=== PATIENT | male | born 1970 | race Caucasian/White ===

== ENCOUNTER → 2020-01-21 11:00 | Outpatient (BNVA) | payer SELFPAY | PROVIDERS: Family Provider Family Medicine; PCP Family Medicine; Visit Provider Internal Medicine | DX: E11.8 Type 2 diabetes mellitus with unspecified complications (principal); E78.5 Hyperlipidemia, unspecified | CPT/HCPCS: 83036 ==

== ENCOUNTER 2020-01-27 05:03 | Emergency (ER) | payer OTHER, SELFPAY ==
[2020-01-27 05:10] VITALS: PULSE 97; RESP 16; TEMP 36.9; O2SAT 97; BMI 31.4
--- NOTE | 2020-01-27 05:31 | XR_ITS ---
WS: [id number] XR chest 1V portable [id number] REASON FOR EXAM: WEAKNESS FINDINGS: The right hemidiaphragm is elevated. The heart and mediastinal interfaces normal. The lung garcia are adequately aerated. No pneumonia, pleural effusion, pulmonary edema, or mass effe ct. The hilum and apices normal. XR/XR chest 1V portable [id number] IMPRESSION: Eventration of the right hemidiaphragm.
--- NOTE | 2020-01-27 05:32 | ECG_ITS ---
Measurements Intervals [place] Rate: 82 P: 24 TX: 154 QRS: 13 QRSD: 93 T: 20 QT: 377 QTc: 443 SINUS RHYTHM No previous ECG available for comparison Electronically Signed On 01-27-2020 19:37:17 CDT by Rashaad Wylie M.D. [id number]
--- NOTE | 2020-01-27 05:33 | ED_ITS ---
Documented by User: Antonia Winkler 01/27/20 05:36 HPI - Headache General: Chief Complaint: Headache Stated Complaint: headache/feet pain Time Seen by Provider: 01/27/20 05:14 History of Present Illness: HPI Narrative: Mr. Alvarado is a 49-year-old male who comes in complaining of headache, intermittent blurry vision, decreased urinary and stool output. States the symptoms have been going on for the past 4 days. He states he is not sleeping well. He denies any chest pain or shortness of breath. He does state that he feels in general weak all over. Denies any back pain or abdominal pain. He states that he is caring for his mother who has Parkinson's and this is been a stressor for him. He feels like his symptoms could be related to stress. Associated symptoms: Reports malaise and nausea; Deny chest pain, confusion, diaphoresis, fever(s), pre-syncope, rash, syncope or vomiting Review of Systems Const: Reports: body aches, fatigue, malaise and change in sleep pattern; Denies: fever(s), chills or diaphoresis Eyes: Denies: change in vision, blurry vision, blind spots or photophobia ENMT: Denies: throat pain, odynophagia, hoarseness, swelling of lips/tongue, ear or mastoid pain, ear discharge, change in hearing or nasal discharge Card: Denies: chest pain, palpitations, irregular heart rhythm, edema, syncope, pre-syncope, dyspnea on exertion or orthopnea Resp: Denies: dyspnea, productive cough, non-productive cough, wheezing, hemoptysis or chest congestion GI: Reports: nausea and constipation; Denies: abdominal pain, vomiting, hematemesis, coffee ground emesis, heartburn, diarrhea, GI cramping, hematochezia or melena : Denies: flank pain, dysuria, urinary frequency, urinary urgency or hematuria Musc: Denies: neck pain, back pain, extremity pain, extremity swelling, joint pain, joint swelling, joint redness, joint warmth or joint stiffness Skin/Breast: Denies: rash, pruritus, erythema, skin tenderness or jaundice Neuro: Denies: headache(s), numbness in extremities, weakness in extremities, sensory changes, lack of coordination, difficulty walking, dizziness, vertigo, confusion or Slurred speech present Ermias/Lymph: Denies: easy bruising, easy bleeding, petechiae, purpura or enlarged lymph nodes All/Imm: Denies: urticaria, throat swelling, tongue swelling, facial swelling or acute wheezing PFSH ED PFSH: Medical History Diabetes mellitus Essential (primary) hypertension Family History Other Cancer Diabetes Heart disease Social History Smoking and tobacco status: never smoked Alcohol intake: never History of recent travel: No Physical Exam Const: COMMON NORMALS: no acute distress, patient oriented x3, no limitations, healthy appearing and well nourished GENERAL APPEARANCE: cooperative, well kempt and well developed HENMT: COMMON NORMALS: normocephalic, atraumatic, hearing grossly normal bilaterally, external ears normal, EAC's normal, Normal external nose present and moist oral mucous membranes HEAD & SCALP: normocephalic and atraumatic NOSE: Normal external nose present and Normal nares present EXTERNAL EAR: Yes external ears normal EXTERNAL AUDITORY CANAL: EAC's normal MOUTH: Normal oral and palatal mucosa present, lip normal and tongue normal Eye: COMMON NORMALS: Equal, round and reactive pupils present, EOMs intact bilaterally, conjunctivae normal and no scleral icterus GENERAL EYE: appearance normal, both eyes and all related structures ALIGNMENT: Yes alignment normal PERIORBITAL: periorbital findings normal EYELID: eyelids normal CONJUNCTIVA: Yes conjunctivae normal SCLERA: sclerae normal PUPIL: Yes Equal, round and reactive pupils present Neck/C-Spine: COMMON NORMALS: full ROM, no lymphadenopathy, supple, no meningeal signs and no JVD GENERAL: Yes normal visual inspection and Yes trachea midline Chest: COMMONS NORMALS: normal inspection of the chest and normal palpation of entire chest wall Resp: COMMON NORMALS: normal respiratory effort, No retractions, No use of accessory muscles and clear to auscultation bilaterally EFFORT & INSPECTION: Yes able to speak in complete sentences and Yes symmetric chest movement AUSCULTATION: clear to auscultation bilaterally, no crackles, no rales, no rhonchi and no wheezes Cardio: COMMON NORMALS: no JVD, regular rate, regular rhythm, S1 normal heart sound present, S2 normal heart sound present, No gallops present (Cardio), No clicks present (Cardio), No murmurs present (Cardio) and No rub (Cardio) RATE: regular rate RHYTHM: regular rhythm HEART SOUNDS: S1 normal heart sound present and S2 normal heart sound present GI: COMMON NORMALS: Soft to palpation and No hepatosplenomegaly present PALPATION: Yes Soft to palpation, No Tenderness to palpation present (GI), No Guarding due to palpation present (GI), No Rigid due to palpation, Yes No hepatosplenomegaly present, No Hernia present, No Palpable mass present and No Pulsatile mass present : COMMON NORMALS: Yes no CVA tenderness BLADDER/KIDNEY EXAM: Yes no CVA tenderness Back/Pelvis: COMMON NORMALS: no CVA tenderness, thoracic and lumbar spine normal to inspection, no thoracic nor lumbar tenderness and thoraco-lumbar ROM normal Extremity: COMMON NORMALS: normal to inspection, full ROM, capillary refill normal, no joint enlargement, no clubbing, cyanosis or edema and no calf tenderness Neuro: COMMON NORMALS: patient oriented x3, CN's II-XII intact bilaterally, moves all extremities, no focal motor deficits and no sensory deficits noted MENINGEAL SIGNS: Yes no meningeal signs SPEECH: speech normal Psych: COMMON NORMALS: mental status grossly normal, Normal thought process present, cooperative, normal affect, speech normal and activity/motor behavior normal APPEARANCE: Yes well kempt SPEECH: Yes normal speech THOUGHT PROCESS: Normal thought process present Skin: COMMON NORMALS: no rashes or lesions noted, turgor normal, no jaundice, no petechiae and no mottling GENERAL SKIN EXAM: no rashes or lesions noted and turgor normal Course Vital Signs: Vital signs: Vital Signs Temperature 98.5 F 01/27/20 05:10 Pulse Rate 83 01/27/20 07:17 Respiratory Rate 16 01/27/20 07:17 Blood Pressure 125/75 01/27/20 07:17 Pulse Oximetry 95 01/27/20 07:17 MDM - Headache Lab Data: Labs: Lab Results 01/27/20 01/27/20 01/27/20 Range/Units 05:36 06:06 06:06 WBC (4.0-10.0) 10^3/ uL RBC (4.1-5.3) 10^6/u L Hgb (11.7-16.6) g/dL Hct (42.0-52.0) % MCV (80-94) fL MCH (28.0-34.0) pg MCHC (30.0-36.0) g/dL RDW (12.1-15.1) % Plt Count (130-400) 10^3/c mm MPV (7.4-10.4) fL Neut % (Auto) % Lymph % (Auto) % Williamson % (Auto) % Eos % (Auto) % Baso % (Auto) % Neut # (Auto) (1.8-7.7) 10^3/u L Lymph # (Auto) (0.8-4.8) 10^3/u L Williamson # (Auto) (0.2-0.9) 10^3/u L Eos # (Auto) (0.0-0.8) 10^3/u L Baso # (Auto) (0.0-0.1) 10^3/u L Nucleated RBC % (a uto) % Nucleated RBCs # /100WBC Sodium (136-145) mmol/L Potassium (3.5-5.1) mmol/L Chloride (98-107) mmol/L Carbon Dioxide (22-29) mmol/L Anion Gap (5-19) BUN (6-20) mg/dL Creatinine (0.7-1.2) mg/dL GFR Calculation (90-130) mL/min Glucose (65-115) mg/dL POC Glucose 280 (70-110) mg/dL Calculated Osmolal ity (285-295) mOsm/k g Calcium (8.5-10.5) mg/dL Magnesium (1.7-2.3) mg/dL Total Bilirubin (0.15-1.2) mg/dL AST (0-40) U/L ALT (0-41) U/L Alkaline Phosphata se (40-130) IU/L Creatine Kinase (39-308) U/L Troponin T Baselin e (0-15) ng/mL Total Protein (6.6-8.7) g/dL Albumin (3.5-5.2) g/dL Globulin (1.3-4.6) g/dL Lipase (13-60) U/L TSH (0.27-4.20) uIU/ mL Urine Color Yellow (Yellow) Urine Appearance Clear (CLEAR) Urine pH 5 (5-7) Ur Specific Gravit y 1.025 (1.005-1.030) Urine Protein Neg (Negative) Urine Glucose (UA) 4+ H (Normal) Urine Ketones Negative (Negative) Urine Blood Neg (Negative) Urine Nitrate Negative (Negative) Urine Bilirubin Neg (NEGATIVE) Urine Urobilinogen Norm (Negative) mg/dL Ur Leukocyte Kianna ase Negative (Negative) Urine RBC None (0-2) /hpf Urine WBC None (0-5) /hpf Ur Squamous Epith Cells None (0-5) Urine Bacteria None (NONE) Urine Opiates Scre en Negative (Negative) ng/mL Ur Barbiturates Sc reen Negative (Negative) ng/mL Ur Phencyclidine S crn Negative (Negative) ng/mL Ur Amphetamines Sc reen Negative (Negative) ng/mL U Benzodiazepines Scrn Negative (Negative) ng/mL Urine Cocaine Scre en Negative (Negative) ng/mL U Marijuana (THC) Screen Negative (Negative) ng/mL 01/27/20 01/27/20 01/27/20 Range/Units 06:08 06:08 06:08 WBC 6.2 (4.0-10.0) 10^3/ uL RBC 4.59 (4.1-5.3) 10^6/u L Hgb 13.5 (11.7-16.6) g/dL Hct 39.7 L (42.0-52.0) % MCV 86.5 (80-94) fL MCH 29.4 (28.0-34.0) pg MCHC 34.0 (30.0-36.0) g/dL RDW 11.8 L (12.1-15.1) % Plt Count 248 (130-400) 10^3/c mm MPV 9.8 (7.4-10.4) fL Neut % (Auto) 47.6 % Lymph % (Auto) 42.5 % Williamson % (Auto) 7.3 % Eos % (Auto) 1.9 % Baso % (Auto) 0.2 % Neut # (Auto) 2.9 (1.8-7.7) 10^3/u L Lymph # (Auto) 2.6 (0.8-4.8) 10^3/u L Williamson # (Auto) 0.5 (0.2-0.9) 10^3/u L Eos # (Auto) 0.1 (0.0-0.8) 10^3/u L Baso # (Auto) 0.0 (0.0-0.1) 10^3/u L Nucleated RBC % (a uto) 0 % Nucleated RBCs # 0.0 /100WBC Sodium 135 L (136-145) mmol/L Potassium 3.8 (3.5-5.1) mmol/L Chloride 98 (98-107) mmol/L Carbon Dioxide 25 (22-29) mmol/L Anion Gap 15.8 (5-19) BUN 16 (6-20) mg/dL Creatinine 0.8 (0.7-1.2) mg/dL GFR Calculation 102.7 (90-130) mL/min Glucose 260 H (65-115) mg/dL POC Glucose (70-110) mg/dL Calculated Osmolal ity 285 (285-295) mOsm/k g Calcium 9.6 (8.5-10.5) mg/dL Magnesium 2.2 (1.7-2.3) mg/dL Total Bilirubin 0.3 (0.15-1.2) mg/dL AST 16 (0-40) U/L ALT 23 (0-41) U/L Alkaline Phosphata se 47 (40-130) IU/L Creatine Kinase 108 (39-308) U/L Troponin T Baselin e 7 (0-15) ng/mL Total Protein 6.5 L (6.6-8.7) g/dL Albumin 4.3 (3.5-5.2) g/dL Globulin 2.2 (1.3-4.6) g/dL Lipase 28 (13-60) U/L TSH 0.95 (0.27-4.20) uIU/ mL Urine Color (Yellow) Urine Appearance (CLEAR) Urine pH (5-7) Ur Specific Gravit y (1.005-1.030) Urine Protein (Negative) Urine Glucose (UA) (Normal) Urine Ketones (Negative) Urine Blood (Negative) Urine Nitrate (Negative) Urine Bilirubin (NEGATIVE) Urine Urobilinogen (Negative) mg/dL Ur Leukocyte Kianna ase (Negative) Urine RBC (0-2) /hpf Urine WBC (0-5) /hpf Ur Squamous Epith Cells (0-5) Urine Bacteria (NONE) Urine Opiates Scre en (Negative) ng/mL Ur Barbiturates Sc reen (Negative) ng/mL Ur Phencyclidine S crn (Negative) ng/mL Ur Amphetamines Sc reen (Negative) ng/mL U Benzodiazepines Scrn (Negative) ng/mL Urine Cocaine Scre en (Negative) ng/mL U Marijuana (THC) Screen (Negative) ng/mL Discharge Plan Discharge Patient Disposition: Home, Self-Care Clinical Impression: Diabetic neuropathy Qualifiers: Diabetes mellitus type: type 1 Diabetes mellitus complication detail: diabetic polyneuropathy Qualified Code(s): E10.42 - Type 1 diabetes mellitus with diabetic polyneuropathy Chronic tension headaches Qualifiers: Intractability: not intractable Qualified Code(s): G44.229 - Chronic tension- type headache, not intractable Insomnia Qualifiers: Insomnia type: unspecified Qualified Code(s): G47.00 - Insomnia, unspecified Condition: Stable Prescriptions: New cyclobenzaprine 10 mg tablet 10 mg PO TID PRN (Reason: muscle spasm) Qty: 20 RF: 0 No Action glimepiride 4 mg tablet 4 mg PO BID RF: 0 losartan 25 mg tablet 25 mg PO ONCE RF: 0 escitalopram oxalate 20 mg tablet 20 mg PO ONCE RF: 0 Lantus Solostar U-100 Insulin 100 unit/mL (3 mL) insulin pen 50 unit SUBCUT BID 30 Days Qty: 15 RF: 6 tramadol 50 mg tablet 50 mg PO Q4H PRN (Reason: pain) Qty: 60 RF: 5 buspirone 7.5 mg tablet 7.5 mg PO BID Qty: 180 RF: 3 metformin 1,000 mg tablet extended release 24hr 1,000 mg PO BID Qty: 60 RF: 6 fluticasone propionate [Flonase Allergy Relief] 50 mcg/actuation spray,suspension 1 spray INTRANASAL BID Qty: 9.9 RF: 0 Ambien 5 mg Tablet 5 mg PO BEDTIME PRN (Reason: Sleep) RF: 0 Discharge Orders: Discharge Order (Routine); Ordered 01/27/20 Ordered By: Sloan Montano Sign Out Sign Out Data: Patient Sign Out occurred on 01/27/20 at 05:59. Patient's care was discussed, and care was transferred from to Sloan Montano. Coding Level of Care Code ED Marble Setter for Chg Fwd Exam Comprehensive Documented by User: Sloan Montano DO 01/27/20 07:28 HPI - Headache General: Chief Complaint: Headache Stated Complaint: headache/feet pain Time Seen by Provider: 01/27/20 05:14 PFSH ED PFSH: Medical History Diabetes mellitus Essential (primary) hypertension Family History Other Cancer Diabetes Heart disease Social History Smoking and tobacco status: never smoked Alcohol intake: never History of recent travel: No Course Vital Signs: Vital signs: Vital Signs Temperature 98.5 F 01/27/20 05:10 Pulse Rate 83 01/27/20 07:17 Respiratory Rate 16 01/27/20 07:17 Blood Pressure 125/75 01/27/20 07:17 Pulse Oximetry 95 01/27/20 07:17 MDM - Headache Lab Data: Labs: Lab Results 01/27/20 01/27/20 01/27/20 Range/Units 05:36 06:06 06:06 WBC (4.0-10.0) 10^3/ uL RBC (4.1-5.3) 10^6/u L Hgb (11.7-16.6) g/dL Hct (42.0-52.0) % MCV (80-94) fL MCH (28.0-34.0) pg MCHC (30.0-36.0) g/dL RDW (12.1-15.1) % Plt Count (130-400) 10^3/c mm MPV (7.4-10.4) fL Neut % (Auto) % Lymph % (Auto) % Williamson % (Auto) % Eos % (Auto) % Baso % (Auto) % Neut # (Auto) (1.8-7.7) 10^3/u L Lymph # (Auto) (0.8-4.8) 10^3/u L Williamson # (Auto) (0.2-0.9) 10^3/u L Eos # (Auto) (0.0-0.8) 10^3/u L Baso # (Auto) (0.0-0.1) 10^3/u L Nucleated RBC % (a uto) % Nucleated RBCs # /100WBC Sodium (136-145) mmol/L Potassium (3.5-5.1) mmol/L Chloride (98-107) mmol/L Carbon Dioxide (22-29) mmol/L Anion Gap (5-19) BUN (6-20) mg/dL Creatinine (0.7-1.2) mg/dL GFR Calculation (90-130) mL/min Glucose (65-115) mg/dL POC Glucose 280 (70-110) mg/dL Calculated Osmolal ity (285-295) mOsm/k g Calcium (8.5-10.5) mg/dL Magnesium (1.7-2.3) mg/dL Total Bilirubin (0.15-1.2) mg/dL AST (0-40) U/L ALT (0-41) U/L Alkaline Phosphata se (40-130) IU/L Creatine Kinase (39-308) U/L Troponin T Baselin e (0-15) ng/mL Total Protein (6.6-8.7) g/dL Albumin (3.5-5.2) g/dL Globulin (1.3-4.6) g/dL Lipase (13-60) U/L TSH (0.27-4.20) uIU/ mL Urine Color Yellow (Yellow) Urine Appearance Clear (CLEAR) Urine pH 5 (5-7) Ur Specific Gravit y 1.025 (1.005-1.030) Urine Protein Neg (Negative) Urine Glucose (UA) 4+ H (Normal) Urine Ketones Negative (Negative) Urine Blood Neg (Negative) Urine Nitrate Negative (Negative) Urine Bilirubin Neg (NEGATIVE) Urine Urobilinogen Norm (Negative) mg/dL Ur Leukocyte Kianna ase Negative (Negative) Urine RBC None (0-2) /hpf Urine WBC None (0-5) /hpf Ur Squamous Epith Cells None (0-5) Urine Bacteria None (NONE) Urine Opiates Scre en Negative (Negative) ng/mL Ur Barbiturates Sc reen Negative (Negative) ng/mL Ur Phencyclidine S crn Negative (Negative) ng/mL Ur Amphetamines Sc reen Negative (Negative) ng/mL U Benzodiazepines Scrn Negative (Negative) ng/mL Urine Cocaine Scre en Negative (Negative) ng/mL U Marijuana (THC) Screen Negative (Negative) ng/mL 01/27/20 01/27/20 01/27/20 Range/Units 06:08 06:08 06:08 WBC 6.2 (4.0-10.0) 10^3/ uL RBC 4.59 (4.1-5.3) 10^6/u L Hgb 13.5 (11.7-16.6) g/dL Hct 39.7 L (42.0-52.0) % MCV 86.5 (80-94) fL MCH 29.4 (28.0-34.0) pg MCHC 34.0 (30.0-36.0) g/dL RDW 11.8 L (12.1-15.1) % Plt Count 248 (130-400) 10^3/c mm MPV 9.8 (7.4-10.4) fL Neut % (Auto) 47.6 % Lymph % (Auto) 42.5 % Williamson % (Auto) 7.3 % Eos % (Auto) 1.9 % Baso % (Auto) 0.2 % Neut # (Auto) 2.9 (1.8-7.7) 10^3/u L Lymph # (Auto) 2.6 (0.8-4.8) 10^3/u L Williamson # (Auto) 0.5 (0.2-0.9) 10^3/u L Eos # (Auto) 0.1 (0.0-0.8) 10^3/u L Baso # (Auto) 0.0 (0.0-0.1) 10^3/u L Nucleated RBC % (a uto) 0 % Nucleated RBCs # 0.0 /100WBC Sodium 135 L (136-145) mmol/L Potassium 3.8 (3.5-5.1) mmol/L Chloride 98 (98-107) mmol/L Carbon Dioxide 25 (22-29) mmol/L Anion Gap 15.8 (5-19) BUN 16 (6-20) mg/dL Creatinine 0.8 (0.7-1.2) mg/dL GFR Calculation 102.7 (90-130) mL/min Glucose 260 H (65-115) mg/dL POC Glucose (70-110) mg/dL Calculated Osmolal ity 285 (285-295) mOsm/k g Calcium 9.6 (8.5-10.5) mg/dL Magnesium 2.2 (1.7-2.3) mg/dL Total Bilirubin 0.3 (0.15-1.2) mg/dL AST 16 (0-40) U/L ALT 23 (0-41) U/L Alkaline Phosphata se 47 (40-130) IU/L Creatine Kinase 108 (39-308) U/L Troponin T Baselin e 7 (0-15) ng/mL Total Protein 6.5 L (6.6-8.7) g/dL Albumin 4.3 (3.5-5.2) g/dL Globulin 2.2 (1.3-4.6) g/dL Lipase 28 (13-60) U/L TSH 0.95 (0.27-4.20) uIU/ mL Urine Color (Yellow) Urine Appearance (CLEAR) Urine pH (5-7) Ur Specific Gravit y (1.005-1.030) Urine Protein (Negative) Urine Glucose (UA) (Normal) Urine Ketones (Negative) Urine Blood (Negative) Urine Nitrate (Negative) Urine Bilirubin (NEGATIVE) Urine Urobilinogen (Negative) mg/dL Ur Leukocyte Kianna ase (Negative) Urine RBC (0-2) /hpf Urine WBC (0-5) /hpf Ur Squamous Epith Cells (0-5) Urine Bacteria (NONE) Urine Opiates Scre en (Negative) ng/mL Ur Barbiturates Sc reen (Negative) ng/mL Ur Phencyclidine S crn (Negative) ng/mL Ur Amphetamines Sc reen (Negative) ng/mL U Benzodiazepines Scrn (Negative) ng/mL Urine Cocaine Scre en (Negative) ng/mL U Marijuana (THC) Screen (Negative) ng/mL Discharge Plan Discharge Patient Disposition: Home, Self-Care Clinical Impression: Diabetic neuropathy Qualifiers: Diabetes mellitus type: type 1 Diabetes mellitus complication detail: diabetic polyneuropathy Qualified Code(s): E10.42 - Type 1 diabetes mellitus with diabetic polyneuropathy Chronic tension headaches Qualifiers: Intractability: not intractable Qualified Code(s): G44.229 - Chronic tension- type headache, not intractable Insomnia Qualifiers: Insomnia type: unspecified Qualified Code(s): G47.00 - Insomnia, unspecified Condition: Stable Prescriptions: New cyclobenzaprine 10 mg tablet 10 mg PO TID PRN (Reason: muscle spasm) Qty: 20 RF: 0 No Action glimepiride 4 mg tablet 4 mg PO BID RF: 0 losartan 25 mg tablet 25 mg PO ONCE RF: 0 escitalopram oxalate 20 mg tablet 20 mg PO ONCE RF: 0 Lantus Solostar U-100 Insulin 100 unit/mL (3 mL) insulin pen 50 unit SUBCUT BID 30 Days Qty: 15 RF: 6 tramadol 50 mg tablet 50 mg PO Q4H PRN (Reason: pain) Qty: 60 RF: 5 buspirone 7.5 mg tablet 7.5 mg PO BID Qty: 180 RF: 3 metformin 1,000 mg tablet extended release 24hr 1,000 mg PO BID Qty: 60 RF: 6 fluticasone propionate [Flonase Allergy Relief] 50 mcg/actuation spray,suspe nsion 1 spray INTRANASAL BID Qty: 9.9 RF: 0 Ambien 5 mg Tablet 5 mg PO BEDTIME PRN (Reason: Sleep) RF: 0 Discharge Orders: Discharge Order (Routine); Ordered 01/27/20 Ordered By: Sloan Montano Sign Out Sign Out Data: Patient Sign Out occurred on 01/27/20 at 05:59. Patient's care was discussed, and care was transferred from to Sloan Montano. Coding Level of Care Code ED Marble Setter for Dipak Fwd Exam Comprehensive
[2020-01-27 05:43] LABS: Glucose Point of Care 280 mg/dL (70-110)
[2020-01-27] MEDS: acetaminophen 500 mg Tablet 1000 MG PO (05:51)
--- NOTE | 2020-01-27 06:03 | CTR_ITS ---
PROCEDURE INFORMATION: Exam: CT Head Without Contrast Exam date and time: 01/27/2020 6:08 AM Age: 49 years old Clinical indication: Pain; Visual disturbance; Patient HX: Onset of headache with blurred vision this a. M. TECHNIQUE: Imaging protocol: Computed tomography of the head without contrast. Radiation optimization: All CT scans at this facility use at least one of these dose optimization techniques: automated exposure control; mA and/or kV adjustment per patient size (includes targeted exams where dose is matched to clinical indication); or iterative reconstruction. COMPARISON: No relevant prior studies available. RADIATION DOSE METRICS: Total DLP: 804.58 mGy-cm FINDINGS: Brain: No hemorrhage. No edema, mass effect or midline shift. Ventricles: No ventriculomegaly. Bones/joints: No acute fracture. Sinuses: No acute sinusitis. Mastoid air cells: No mastoid effusion. Soft tissues: Unremarkable. CT/CT head wo con* [id number] IMPRESSION: No acute intracranial abnormality. Radiation Dose CTDIVOL = (mGy): DLP = 804.58 (mGy-cm)
[2020-01-27 06:19] LABS: Basophils % 0.2 %; Eosinophils # 0.1 10^3/uL (0.0-0.8); Eosinophils % 1.9 %; Hematocrit 39.7 % (42.0-52.0); Hemoglobin 13.5 g/dL (11.7-16.6); Lymphocytes # 2.6 10^3/uL (0.8-4.8); Lymphocytes % 42.5 %; Mean Corpuscular Hemoglobin 29.4 pg (28.0-34.0); Mean Corpuscular Volume 86.5 fL (80-94); Mean Platelet Volume 9.8 fL (7.4-10.4); Monocytes # 0.5 10^3/uL (0.2-0.9); Monocytes % 7.3 %; Neutrophils # 2.9 10^3/uL (1.8-7.7); Neutrophils % 47.6 %; Nucleated Red Blood Cells % 0 %; Platelet Count 248 10^3/cmm (130-400); Red Blood Count 4.59 10^6/uL (4.1-5.3); Red Cell Distribution Width 11.8 % (12.1-15.1); White Blood Count 6.2 10^3/uL (4.0-10.0)
[2020-01-27 06:34] LABS: Bilirubin Urine Neg (NEGATIVE); Blood Urine Neg (Negative); Glucose Urine UA 4+ (Normal); Ketones Urine Negative (Negative); Leukocyte Esterase Urine Negative (Negative); Nitrate Urine Negative (Negative); Protein Urine Neg (Negative); Specific Gravity, Urine 1.025 (1.005-1.030); Urine Appearance Clear (CLEAR); Urine Color Yellow (Yellow); Urobilinogen Urine Norm (Negative); pH Urine 5 (5-7)
[2020-01-27 06:34] LABS: Troponin(5th) Baseline 7 ng/mL (0-15)
[2020-01-27 06:42] LABS: Amphetamines Screen Urine Negative (Negative); Barbiturates Screen Urine Negative (Negative); Benzodiazepines Screen Urine Negative (Negative); Cocaine Screen Urine Negative (Negative); Opiate Screen Urine Negative (Negative); PCP Screen Urine Negative (Negative); THC Screen Urine Negative (Negative)
[2020-01-27 06:43] LABS: Add Urine Culture? No
[2020-01-27 07:11] LABS: Alanine Aminotransferase 23 U/L (0-41); Albumin Level 4.3 g/dL (3.5-5.2); Alkaline Phosphatase 47 IU/L (40-130); Anion Gap 15.8 (5-19); Aspartate Amino Transferase 16 U/L (0-40); Blood Urea Nitrogen 16 mg/dL (6-20); Calcium 9.6 mg/dL (8.5-10.5); Carbon Dioxide 25 mmol/L (22-29); Chloride 98 mmol/L (98-107); Creatine Phosphokinase 108 U/L (39-308); Globulin 2.2 g/dL (1.3-4.6); Glomerular Filtration Rate 102.7 mL/min (90-130); Glucose 260 mg/dL (65-115); Lipase 28 U/L (13-60); Magnesium 2.2 mg/dL (1.7-2.3); Osmolality Calculated 285 mOsm/kg (285-295); Potassium 3.8 mmol/L (3.5-5.1); Sodium 135 mmol/L (136-145); Thyroid Stimulating Hormone 0.95 uIU/mL (0.27-4.20); Total Bilirubin 0.3 mg/dL (0.15-1.2); Total Protein 6.5 g/dL (6.6-8.7)
[2020-01-27 07:17] VITALS: BP 125/75; PULSE 83; RESP 16; O2SAT 95
[2020-01-27 08:27] VITALS: BP 137/65; PULSE 98; RESP 21; O2SAT 97
== END 2020-01-27 08:20 | disposition home or self-care (01) ==
PROVIDERS: Emergency Medicine; Emergency Provider Family Medicine
DX: E10.42 Type 1 diabetes mellitus with diabetic polyneuropathy (principal); G44.229 Chronic tension-type headache, not intractable; G47.00 Insomnia, unspecified; Z79.4 Long term (current) use of insulin; I10 Essential (primary) hypertension
CPT/HCPCS: 12345; 36416; 70450; 71045; 80053; 80306; 81001; 82550; 82962; 83690; 83735; 84443; 84484; 85025; 93005; 99283; 99284

== ENCOUNTER → 2020-03-03 14:24 | Outpatient (BNVA) | payer OTHER, SELFPAY | PROVIDERS: Referring Provider Internal Medicine; Visit Provider Podiatrist Foot & Ankle Surgery | DX: M25.872 Other specified joint disorders, left ankle and foot (principal); M25.572 Pain in left ankle and joints of left foot; M25.571 Pain in right ankle and joints of right foot | CPT/HCPCS: 73620; 73630 ==

== ENCOUNTER → 2020-04-22 11:00 | Outpatient (BNVA) | payer OTHER, SELFPAY | PROVIDERS: Visit Provider Nurse Practitioner Family | DX: Z11.59 Encounter for screening for other viral diseases (principal); J06.9 Acute upper respiratory infection, unspecified | CPT/HCPCS: 87635 ==

== ENCOUNTER 2021-04-16 15:14 | Emergency (ER) | payer OTHER, SELFPAY ==
--- NOTE | 2021-04-16 15:25 | ECG_ITS ---
[facility] ED Test Date: 2021-04-16 Pat Name: Dennis Alvarado Department: Room: Gender: Male Biological Engineer: : 1970 Requested By: Nigel Randolph Order Number: [id number] Brewster MD: Megan Dee M.D. Measurements Intervals [place] Rate: 86 P: 29 WI: 151 QRS: 9 QRSD: 105 T: 16 QT: 382 QTc: 458 Interpretive Statements SINUS RHYTHM Compared to ECG 01/27/2020 05:54:56 No significant changes Electronically Signed On 04-16-2021 20:49:19 CDT by Megan Dee M.D. [email or web address] smith countySequence [id number]
[2021-04-16 15:29] VITALS: BP 156/83; PULSE 87; RESP 18; TEMP 36.4; O2SAT 96; BMI 30.4
[2021-04-16 15:33] VITALS: BP 138/88; PULSE 79; RESP 18; O2SAT 99
--- NOTE | 2021-04-16 15:45 | W.ED.GENADLT ---
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 Patient says he has been experiencing intermittent vertigo symptoms for the last 2 weeks and has an ENT specialist in [place] for which he has been unable to schedule appointment in the next few days. Patient presents since this symptom has gotten a lot worse today despite meclizine and benadryl ath ome. Patient has had multiple episodes of vomiting, right-sided ear fullness, tinnitus, and vertigo symptoms lasting for 2 hours now. Patient denies any chest pain shortness of breath, palpitation, or focal weakness. Onset:chronic Duration:2 hrs current episode Location:home Severity:moderate Review of Systems Narrative: Constitutional: No fever, no chills. HEENT: No vision changes CV: No chest pain, no palpitations PULM: no cough, no dyspnea. GI: No abdominal pain, +N/-V/-D. : No dysuria MSKEL: No muscle pain SKIN: No new rashes, no lesions. NEURO: +headache, no focal weakness. +vertigo HEME: No visible bruises PSYCH: Normal mood PFSH ED PFSH: Medical History (Updated 04/16/21 @ 17:46 by Nigel Randolph MD) Diabetes mellitus Essential (primary) hypertension Hyperlipidemia Neuropathy Tachycardia Surgical History History of mandibular surgery S/P tonsillectomy Family History Other Cancer Diabetes Heart disease Social History Smoking and tobacco status: never smoked Alcohol intake: never History of recent travel: No Physical Exam Narrative: EXAM NARRATIVE: Head: Atraumatic Eyes: PERRL, conjunctiva without injection, +unilateral L sided nystagmus, no skew eye deviation. Negative head impulse test ENT: Mucous membrane moist. NECK: Supple, ROM intact LUNGS: LCTAB, no crackles/rhonchi CV: RRR ABDOMEN: Soft, nontender in all quadrants EXTREMITY: Normal ROM SKIN: No rash or erythema NEURO: Mental status? Awake, alert, and oriented to self, year, month, location, and situation.? Following simple axial and appendicular commands.? Has appropriate fund of knowledge, comprehension, and insight.? Able to recall and understands pertinent aspects of medical history and current treatment status.? ? Language? Speech is fluent without word-finding difficulties.? Intact naming, expression, airline lounge receptionist, and repetition.? ? Cranial nerves? 2,3,4,6: PERRL, EOMI with no nystagmus. 5: Intact sensation to light touch, symmetric? 7: Smile symmetrical, no facial droop.? 8: Hearing grossly intact.? 9,10: Normal palate movement.? 11: Normal strength in trapezius bilaterally 12: Tongue protrudes midline.? ? Motor examination? Normal bulk & tone. Strength as follows (R/L): Delts (5/5), Biceps (5/5), Triceps (5/5), Wrist ext (5/5), hip flexors (5/5), plantarflexors (5/5), dorsiflexors (5/5). ? Sensation? Light Touch: Grossly intact and equal in upper and lower extremities bilaterally? Romberg: Negative.? Distal joint position sense intact ? Coordination? Sktxjq-ol-olmb-finger movements intact without dysmetria or past-pointing.? Rapid fingertaps: preserved amplitude without decriment.? No tremor, myoclonus or truncal ataxia.? ? Gait/stance? Steady, normal narrow base gait with appropriate arm swing and turning.? Tandem gait without hesitation or loss of balance. 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 On exam, patient has unilateral left-sided nystagmus. Hints exam negative. Neuro exam negative. Hemodynamically stable. Patient received IVF, meclizine, magnesium sulfate in the emergency room with significant improvement in symptoms. Patient is currently not complaining of nausea/vomiting or vertigo symptoms. Patient tolerated p.o. in the emergency room. Patient reassures me that he has a PCP for which he will follow up on Sunday. In addition, I have referred patient to our ENT specialist here at [facility] since he lives nearby. Patient agrees with plan to come back to the emergency room should he have any signs of fever/chills, acute focal neurological deficits, occluding diplopia, worsening nausea vomiting dehydration, or new or concerning complaints. Rx magnesium oxide PRN headache and meclizine PRN vertigo symptoms Disposition: Discharge. Lab Data: Labs: Lab Results 04/16/21 04/16/21 04/16/21 Range/Units 16:11 16:11 16:11 WBC 8.8 (4.0-10.0) 10^3/ uL RBC 4.54 (4.1-5.3) 10^6/u L Hgb 13.6 (11.7-16.6) g/dL Hct 39.4 L (42.0-52.0) % MCV 86.8 (80-94) fl MCH 30.0 (28.0-34.0) pg MCHC 34.5 (30.0-36.0) g/dL RDW 11.6 L (12.1-15.1) % Plt Count 280 (130-400) 10^3/c mm MPV 9.9 (7.4-10.4) fL Neut % (Auto) 65.1 % Lymph % (Auto) 26.8 % Villalba % (Auto) 5.4 % Eos % (Auto) 1.6 % Baso % (Auto) 0.5 % Neut # (Auto) 5.76 (1.8-7.7) 10^3/u L Lymph # (Auto) 2.4 (0.8-4.8) 10^3/u L Villalba # (Auto) 0.5 (0.2-0.9) 10^3/u L Eos # (Auto) 0.1 (0.0-0.8) 10^3/u L Baso # (Auto) 0.0 (0.0-0.1) 10^3/u L Nucleated RBC % (a uto) 0 % Nucleated RBCs # 0.0 /100WBC Sodium 136 (136-145) mmol/L Potassium 4.2 (3.5-5.1) mmol/L Chloride 100 (98-107) mmol/L Carbon Dioxide 25 (22-29) mmol/L Anion Gap 15.2 (5-19) BUN 15 (6-20) mg/dL Creatinine 0.7 (0.7-1.2) mg/dL GFR Calculation 119.4 (90-130) mL/min Glucose 214 H (65-115) mg/dL Calculated Osmolal ity 289 (285-295) mOsm/k g Calcium 9.3 (8.5-10.5) mg/dL Troponin T Baselin e 7 (0-15) ng/L Discharge Plan Discharge Patient Disposition: Home Clinical Impression: Vertigo Condition: Stable Prescriptions: New meclizine 25 mg tablet,chewable 25 mg PO BID PRN (Reason: motion sickness) Qty: 60 RF: 0 magnesium oxide 500 mg capsule 500 mg PO BID PRN (Reason: headache) Qty: 10 RF: 0 No Action glimepiride 4 mg tablet 4 mg PO BID RF: 0 losartan 25 mg tablet 25 mg PO ONCE RF: 0 escitalopram oxalate 20 mg tablet 20 mg PO ONCE RF: 0 Lantus Solostar U-100 Insulin 100 unit/mL (3 mL) insulin pen 50 unit SUBCUT BID 30 Days Qty: 15 RF: 6 buspirone 7.5 mg tablet 7.5 mg PO BID Qty: 180 RF: 3 (DME) sole supports See Rx Instructions .Route .MEDSUPPLY Qty: 1 RF: 0 fluticasone propionate [Flonase Allergy Relief] 50 mcg/actuation spray,suspension 1 spray INTRANASAL BID Qty: 9.9 RF: 0 tramadol 50 mg tablet 50 mg PO Q4H PRN (Reason: pain) Qty: 60 RF: 5 metformin 500 mg tablet extended release 24 hr See Rx Instructions .ROUTE .COMPLEX Qty: 120 RF: 6 Ambien 5 mg Tablet 5 mg PO BEDTIME PRN (Reason: Sleep) RF: 0 cyclobenzaprine 10 mg tablet 10 mg PO TID PRN (Reason: muscle spasm) Qty: 20 RF: 0 Discharge Orders: Discharge ED (Routine); Ordered 04/16/21 Ordered By: Nigel Randolph Referrals: Surinder,JORGE Bone [Primary Care Provider] - Discharge Diet: Advance as tolerated and Usual diet Discharge Activity: Resume usual activity Patient Instructions: Vertigo (ED) Activity Restrictions/Additional Instructions: Follow up with your doctors. Come back if your symptoms worsen. We will call you to make an appointment here with our ENT docotr. Coding Level of Care Code ED Refrigeration Installer for Dipak Colbert
[2021-04-16 16:03] VITALS: BP 133/74; PULSE 80; RESP 18; O2SAT 99
[2021-04-16 16:23] LABS: Basophils % 0.5 %; Eosinophils # 0.1 10^3/uL (0.0-0.8); Eosinophils % 1.6 %; Hematocrit 39.4 % (42.0-52.0); Hemoglobin 13.6 g/dL (11.7-16.6); Lymphocytes # 2.4 10^3/uL (0.8-4.8); Lymphocytes % 26.8 %; Mean Corpuscular HGB Conc 34.5 g/dL (30.0-36.0); Mean Corpuscular Volume 86.8 fl (80-94); Mean Platelet Volume 9.9 fL (7.4-10.4); Monocytes # 0.5 10^3/uL (0.2-0.9); Monocytes % 5.4 %; Neutrophils # 5.76 10^3/uL (1.8-7.7); Neutrophils % 65.1 %; Nucleated Red Blood Cells % 0 %; Platelet Count 280 10^3/cmm (130-400); Red Blood Count 4.54 10^6/uL (4.1-5.3); Red Cell Distribution Width 11.6 % (12.1-15.1); White Blood Count 8.8 10^3/uL (4.0-10.0)
[2021-04-16] MEDS: sodium chloride 0.9% 1,000 ML 999 ML IV (16:31)
[2021-04-16] MEDS: acetaminophen 500 mg Tablet 1000 MG PO (16:31)
[2021-04-16] MEDS: magnesium sulfate premix 2 GM/50 ML PIGGYBACK IV (16:31)
[2021-04-16] MEDS: meclizine 25 mg tablet 50 MG PO (16:31)
[2021-04-16 16:59] LABS: Troponin(5th) Baseline 7 ng/L (0-15)
[2021-04-16 17:00] VITALS: BP 132/75; PULSE 84; RESP 18; O2SAT 96
[2021-04-16 17:00] LABS: Anion Gap 15.2 (5-19); Blood Urea Nitrogen 15 mg/dL (6-20); Calcium 9.3 mg/dL (8.5-10.5); Carbon Dioxide 25 mmol/L (22-29); Chloride 100 mmol/L (98-107); Glomerular Filtration Rate 119.4 mL/min (90-130); Glucose 214 mg/dL (65-115); Osmolality Calculated 289 mOsm/kg (285-295); Potassium 4.2 mmol/L (3.5-5.1); Sodium 136 mmol/L (136-145)
[2021-04-16 17:51] VITALS: BP 136/78; PULSE 79; RESP 18; O2SAT 98
--- NOTE | 2021-04-18 08:38 | DCPLANNER ---
lead generation marketing manager had message to schedule a follow up appointment for patient with ENT. lead generation marketing manager emailed patients information to Windy [facility] and [place] at [facility]. Patients information will be printed and reviewed. Clinic will call patient with appointment information.
--- NOTE | 2021-04-19 07:43 | DCPLANNER ---
Patient has a follow up appointment scheduled for , March at 8:[address] Mario at [facility]. Clinic will call patient with appointment information.
--- NOTE | 2021-04-22 08:18 | DCPLANNER ---
Patient had a follow up appointment scheduled for 04.21.21 with ENT - patient did not attend appointment.
== END 2021-04-16 17:52 | disposition home or self-care (01) ==
PROVIDERS: Emergency Provider Emergency Medicine; PCP Nurse Practitioner Family
DX: R42 Dizziness and giddiness (principal); Z79.4 Long term (current) use of insulin; I10 Essential (primary) hypertension; E78.5 Hyperlipidemia, unspecified; E11.40 Type 2 diabetes mellitus with diabetic neuropathy, unspecified
CPT/HCPCS: 80048; 84484; 85025; 93005; 96365; 99284; J3475; J7030; J8597

== ENCOUNTER 2021-08-31 12:42 | Outpatient (CLI) | payer OTHER, SELFPAY ==
[2021-08-31 13:20] VITALS: BP 107/80; PULSE 98; RESP 115; TEMP 36.7; O2SAT 97; BMI 28.8
[2021-08-31 13:45] VITALS: BP 150/90; PULSE 88; RESP 17; TEMP 36.8; O2SAT 98
[2021-08-31 14:45] VITALS: BP 165/97; PULSE 99; RESP 17; TEMP 36.8; O2SAT 96
== END 2021-08-31 12:43 | disposition home or self-care (01) ==
PROVIDERS: PCP Nurse Practitioner Family; Visit Provider Nurse Practitioner Family
DX: U07.1 COVID-19 (principal)
CPT/HCPCS: 96365

== ENCOUNTER → 2023-03-28 08:08 | Outpatient (BNVA) | payer OTHER, SELFPAY | PROVIDERS: PCP Nurse Practitioner Family; Visit Provider Internal Medicine | DX: E11.9 Type 2 diabetes mellitus without complications (principal); E78.2 Mixed hyperlipidemia; R79.89 Other specified abnormal findings of blood chemistry | CPT/HCPCS: 80053; 80061; 82043; 83001; 83002; 83036; 83721; 84146; 84402; 84403; 84681 ==

== ENCOUNTER 2023-04-23 12:11 | Emergency (ER) | payer OTHER, SELFPAY ==
[2023-04-23 12:13] VITALS: BP 142/83; PULSE 103; RESP 15; TEMP 36.6; O2SAT 98; BMI 30.3
[2023-04-23 16:32] VITALS: BP 135/83; PULSE 86; RESP 18; O2SAT 97
--- NOTE | 2023-04-23 17:28 | CTR_ITS ---
PROCEDURE INFORMATION: Exam: CT Head Without Contrast Exam date and time: 04/23/2023 5:47 PM Age: 52 years old Clinical indication: Numbness / parasthesia; Right; Additional info: Right sided facial numbness/weakness TECHNIQUE: Imaging protocol: Computed tomography of the head without contrast. Radiation optimization: All CT scans at this facility use at least one of these dose optimization techniques: automated exposure control; mA and/or kV adjustment per patient size (includes targeted exams where dose is matched to clinical indication); or iterative reconstruction. REPORTING DATA: Count of CT and Cardiac NM exams in prior 12 months: This patient has received 0 known CTs and 0 known cardiac nuclear medicine studies in the 12 months prior to the current study. COMPARISON: CT head wo con* [id number] 01/27/2020 6:10 AM RADIATION DOSE METRICS: Total DLP (mGy-cm): 1128.9 FINDINGS: Brain: No hemorrhage. No edema. Mild diffuse cerebral atrophy. Redemonstrated old lacunar infarcts noted in the basal ganglia. No mass effect. Cerebral ventricles: No ventriculomegaly. Paranasal sinuses: Visualized sinuses are unremarkable. No fluid levels. Mastoid air cells: Visualized mastoid air cells are well aerated. Bones/joints: Unremarkable. No acute fracture. Soft tissues: Unremarkable. CT/CT head wo con* [id number] IMPRESSION: No acute intracranial abnormality.
--- NOTE | 2023-04-23 17:29 | ED_ITS ---
HPI - Neuro Symptoms/Deficit General: Chief Complaint: Neuro Symptoms/Deficit Stated Complaint: left side numbness Time Seen by Provider: 04/23/23 16:46 History of Present Illness: 52-year-old male presents the emergency department stating that 3 days ago on the he felt like his right upper lip was numb. He says when he was eating or doing things like using mouthwash at night he felt like he could not close his mouth all the way. Today he says that his colleagues were saying that the right side of his mouth was not moving very well at work. Patient says in the past he was told he might of had a TIA. He does have diabetes. He has noticed that his right eye is watery more than usual. Associated symptoms: Deny chest pain, headache(s), nausea, syncope or vomiting Review of Systems General: Reports: 10 or more systems reviewed and unremarkable except in HPI and below Const: Denies: fever(s), chills or body aches Eyes: Denies: change in vision ENMT: Denies: throat pain Card: Denies: chest pain, edema or syncope Resp: Denies: dyspnea or productive cough GI: Denies: abdominal pain, nausea, vomiting or diarrhea : Denies: flank pain, dysuria or urinary frequency Musc: Denies: neck pain, back pain, extremity pain or extremity swelling Skin/Breast: Denies: rash or erythema Neuro: Denies: headache(s), numbness in extremities, weakness in extremities, lack of coordination or difficulty walking PFSH ED PFSH: Medical History Diabetes mellitus Essential (primary) hypertension Hyperlipidemia Neuropathy Tachycardia Surgical History History of mandibular surgery S/P tonsillectomy Family History Other Cancer Diabetes Heart disease Social History Smoking and tobacco status: never smoked Alcohol intake: never NIH stroke score NIHSS: Level Of Consciousness - 1a: 0 Level Of Consciousness Questions - 1b: Both Correct Level Of Consciousness Commands - 1c: Both Correct Best Gaze - 2: Normal Visual Bloom - 3: No Visual Loss Facial Palsy - 4: Normal Motor Arm Right - 5: No Drift Motor Arm Left - 5: No Drift Motor Leg Right - 6: No Drift Motor Leg Left - 6: No Drift Limb Ataxia - 7: Absent Sensory - 8: Normal Dysarthia - 10: Normal Extinction And Inattention - 11: 0 Physical Exam Const: COMMON NORMALS: patient oriented x3, no limitations, alert and well nourished EXAM LIMITATIONS: no altered mental status HENMT: COMMON NORMALS: normocephalic, atraumatic and external ears normal HEAD & SCALP: normocephalic and atraumatic EXTERNAL EAR: Yes external ears normal MOUTH: no muffled voice Eye: COMMON NORMALS: Equal, round and reactive pupils present GENERAL EYE: other (Mild conjunctival injection on the right side) VISUAL BLOOM: No peripheral vision loss and No central vision loss ALIGNMENT: Yes alignment normal PERIORBITAL: periorbital findings normal EYELID: eyelids normal CONJUNCTIVA: Yes other (Mild/subtle conjunctival injection on the right, none on the left) PUPIL: Yes Equal, round and reactive pupils present, Yes Pupil accommodation reflex normal and No Pupils anisocoria EOM: No EOM abnormal, No movement deficit and No Nystagmus present Neck/C-Spine: COMMON NORMALS: no JVD GENERAL: Yes normal visual inspection and Yes trachea midline Resp: COMMON NORMALS: normal respiratory effort, No use of accessory muscles and clear to auscultation bilaterally AUSCULTATION: clear to auscultation bilaterally Cardio: COMMON NORMALS: no JVD, regular rate and regular rhythm RATE: regular rate RHYTHM: regular rhythm GI: COMMON NORMALS: Soft to palpation and non-tender PALPATION: Yes Soft to palpation and No Guarding due to palpation present (GI) Extremity: COMMON NORMALS: normal to inspection Neuro: COMMON NORMALS: patient oriented x3, CN's II-XII intact bilaterally, moves all extremities, no focal motor deficits and no sensory deficits noted SENSORIUM/ORIENTATION: Yes alert CRANIAL NERVES: Yes CN normal except as noted SPEECH: speech normal OTHER: Patient is able to raise his eyebrows bilaterally, he is able to perform extraocular movements without any difficulty. He has a normal smile. His tongue is midline. His uvula is midline. He has a normal shrug. When simultaneously touching both sides of his face and all the different distributions, he notes no asymmetry to light touch. Ms. speech is normal. When I have him closes eyes tightly, there is slightly less strength in the right eye. This is the only cranial nerve deficit I can find Psych: COMMON NORMALS: mental status grossly normal, Normal thought process present, cooperative, normal affect and speech normal SPEECH: Yes normal speech THOUGHT PROCESS: Normal thought process present Skin: COMMON NORMALS: no rashes or lesions noted, turgor normal and no jaundice GENERAL SKIN EXAM: no rashes or lesions noted and turgor normal Course Vital Signs: Vital signs: Vital Signs Temperature 97.9 F 04/23/23 12:13 Pulse Rate 86 04/23/23 16:32 Respiratory Rate 18 04/23/23 16:32 Blood Pressure 135/83 04/23/23 16:32 Pulse Oximetry 97 04/23/23 16:32 Oxygen Delivery Me thod Room Air 04/23/23 16:32 MDM - Neuro Symptoms/Deficit Medical Decision Making 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 This would be based on findings of mild right conjunctival injection as well as a subjective report of tearing from the right eye. It would also be based on the fact that when he closes his right eye tightly he cannot resist me opening it as well as he can on the left side. Otherwise his examination is normal. Since this is not a clear-cut case of Rose's palsy, I talked to him about option of doing a CT scan as well as labs. There is a small chance it could be related to neuropathy from diabetes, CVA, abnormal electrolytes, etc. Overall, the patient states he has improved throughout the day. I did note during the examination that at times he appeared to be holding the right side of his lip steady while he spoke. However at other times he was being very animated with his conversation and the lip was moving completely normally. There may be some anxiety or volitional component to this as well. I did note that he is on medication for mixed anxiety depression--unsure if this is contributing. There are no neurologic findings in the extremities, trunk, lower extremities. Low suspicion for CVA White blood cell count is normal. Serum calcium is normal. Serum potassium is normal. Glucose is 162. CT scan of the head is unremarkable for any acute intracranial abnormality. Suspect this is a mild/incomplete case of Rose's palsy. Going to treat him with an eye patch and lubricating eyedrops. I am also going to give him return precautions in the event that something new develops or symptoms progress. Lab Data 04/23/23 17:38 04/23/23 17:[address] 04/23/23 17:28 IMPRESSION: No acute intracranial abnormality. Laboratory Results WBC 8.43 10^3/uL (3.29-11.43) 04/23/23 17:38 RBC 4.44 10^6/uL (3.85-5.65) 04/23/23 17:38 Hgb 13.00 g/dL (11.27-16.99) 04/23/23 17:38 Hct 39.6 % (37-53) 04/23/23 17:38 MCV 89.2 fl (82-101) 04/23/23 17:38 MCH 29.3 pg (27-33) 04/23/23 17:38 MCHC 32.8 g/dL (30-55) 04/23/23 17:38 RDW 12.4 % (12.1-15.1) 04/23/23 17:38 Plt Count 326 10^3/cmm (157-399) 04/23/23 17:38 MPV 9.5 fL (7.4-10.4) 04/23/23 17:38 Neut % (Auto) 62.4 % 04/23/23 17:38 Lymph % (Auto) 28.0 % 04/23/23 17:38 Falls % (Auto) 6.8 % 04/23/23 17:38 Eos % (Auto) 1.9 % 04/23/23 17:38 Baso % (Auto) 0.5 % 04/23/23 17:38 Neut # (Auto) 5.27 10^3/uL (1.8-7.7) 04/23/23 17:38 Lymph # (Auto) 2.4 10^3/uL (0.8-4.8) 04/23/23 17:38 Falls # (Auto) 0.6 10^3/uL (0.2-0.9) 04/23/23 17:38 Eos # (Auto) 0.2 10^3/uL (0.0-0.8) 04/23/23 17:38 Baso # (Auto) 0.0 10^3/uL (0.0-0.1) 04/23/23 17:38 Nucleated RBC % (auto) 0 % 04/23/23 17:38 Nucleated RBCs # 0.0 /100WBC 04/23/23 17:38 Sodium 135 mmol/L (136-145) L 04/23/23 17:38 Potassium 4.7 mmol/L (3.5-5.1) 04/23/23 17:38 Chloride 97 mmol/L (98-107) L 04/23/23 17:38 Carbon Dioxide 27 mmol/L (22-29) 04/23/23 17:38 Anion Gap 15.7 (5-19) 04/23/23 17:38 BUN 21 mg/dL (6-20) H 04/23/23 17:38 Creatinine 1.0 mg/dL (0.7-1.2) 04/23/23 17:38 GFR Calculation 78.5 mL/min (90-130) L 04/23/23 17:38 Glucose 162 mg/dL (65-115) H 04/23/23 17:38 Calculated Osmolality 287 mOsm/kg (285-295) 04/23/23 17:38 Calcium 9.9 mg/dL (8.5-10.5) 04/23/23 17:38 Total Bilirubin 0.5 mg/dL (0.15-1.2) 04/23/23 17:38 AST 15 U/L (0-40) 04/23/23 17:38 ALT 24 U/L (0-41) 04/23/23 17:38 Alkaline Phosphatase 58 U/L (40-130) 04/23/23 17:38 Total Protein 7.7 g/dL (6.6-8.7) 04/23/23 17:38 Albumin 4.6 g/dL (3.5-5.2) 04/23/23 17:38 Globulin 3.1 g/dL (1.3-4.6) 04/23/23 17:38 Discharge Plan Discharge Patient Disposition: Home Clinical Impression: Facial paresthesia Condition: Stable Prescriptions: No Action glimepiride 4 mg tablet 4 mg PO BID losartan 25 mg tablet 25 mg PO ONCE escitalopram oxalate 20 mg tablet 20 mg PO ONCE Lantus Solostar U-100 Insulin 100 unit/mL (3 mL) insulin pen 50 unit SUBCUT BID 30 Days Qty: 15 6RF Rx Instructions: 52 units buspirone 7.5 mg tablet 7.5 mg PO BID Qty: 180 3RF (DME) sole supports See Rx Instructions .Route .MEDSUPPLY Qty: 1 0RF Rx Instructions: As directed fluticasone propionate [Flonase Allergy Relief] 50 mcg/actuation spray,suspension 1 spray INTRANASAL BID Qty: 9.9 0RF Rx Instructions: administer into each nostril (DME) pen needle, diabetic [BD Diane 2nd Gen Pen Needle] 32 gauge x 5/32 needle See Rx Instructions .Route Rx Instructions: As directed fluconazole 150 mg tablet 150 mg PO DAILY fluoxetine 40 mg capsule 40 mg PO DAILY (DME) FreeStyle Sandra 2 Sensor Kit See Rx Instructions .Route Rx Instructions: As directed gabapentin 300 mg capsule 300 mg PO DAILY rosuvastatin 40 mg tablet 40 mg PO DAILY Toujeo Max U-300 SoloStar 300 unit/mL (3 mL) insulin pen 30 unit SUBCUT DAILY triamterene-hydrochlorothiazid 37.5-25 mg capsule 1 cap PO DAILY tramadol 50 mg tablet 50 mg PO Q4H PRN (Reason: pain) Qty: 60 5RF metformin 500 mg tablet extended release 24 hr See Rx Instructions .ROUTE .COMPLEX Qty: 120 6RF Dose Instruction: TAKE TWO TABLETS (1,000MG) BY MOUTH TWICE DAILY Rx Instructions: TAKE TWO TABLETS (1,000MG) BY MOUTH TWICE DAILY Ambien 5 mg Tablet 5 mg PO BEDTIME PRN (Reason: Sleep) cyclobenzaprine 10 mg tablet 10 mg PO TID PRN (Reason: muscle spasm) Qty: 20 0RF meclizine 25 mg tablet,chewable 25 mg PO BID PRN (Reason: motion sickness) Qty: 60 0RF magnesium oxide 500 mg capsule 500 mg PO BID PRN (Reason: headache) Qty: 10 0RF Discharge Orders: Discharge ED (Routine); Ordered 04/23/23 Ordered By: Cole Tripp Referrals: Smitha Cadena APN [Primary Care Provider] - 1-3 days (Right facial paresthesia and ? weakness) Discharge Diet: Usual diet Discharge Activity: Resume usual activity Patient Instructions: Rose's Palsy, Paresthesia (ED) Activity Restrictions/Additional Instructions: CT scan of your head was unremarkable. You have some subtle features of Rose's palsy. This is a motor palsy of 1 side of the face. Please use [id number] lubricating eyedrops in your right eye. Do this 4 times per day. Apply an eye patch or cover over your right eye while you sleep so it does not get dried out or scratched. Return to the emergency department if you have new or worsening symptoms. This could include weakness, numbness, changes in your visual acuity, problems with coordination, fever, swelling, or other new or worrisome symptoms. Coding Level of Care Code ED Party Plan Salesperson for Dipak Colbert
[2023-04-23 17:51] LABS: Basophils % 0.5 %; Eosinophils # 0.2 10^3/uL (0.0-0.8); Eosinophils % 1.9 %; Hematocrit 39.6 % (37-53); Lymphocytes # 2.4 10^3/uL (0.8-4.8); Mean Corpuscular HGB Conc 32.8 g/dL (30-55); Mean Corpuscular Hemoglobin 29.3 pg (27-33); Mean Corpuscular Volume 89.2 fl (82-101); Mean Platelet Volume 9.5 fL (7.4-10.4); Monocytes # 0.6 10^3/uL (0.2-0.9); Monocytes % 6.8 %; Neutrophils # 5.27 10^3/uL (1.8-7.7); Neutrophils % 62.4 %; Nucleated Red Blood Cells % 0 %; Platelet Count 326 10^3/cmm (157-399); Red Blood Count 4.44 10^6/uL (3.85-5.65); Red Cell Distribution Width 12.4 % (12.1-15.1); White Blood Count 8.43 10^3/uL (3.29-11.43)
[2023-04-23 18:07] LABS: Alanine Aminotransferase 24 U/L (0-41); Albumin Level 4.6 g/dL (3.5-5.2); Alkaline Phosphatase 58 U/L (40-130); Anion Gap 15.7 (5-19); Aspartate Amino Transferase 15 U/L (0-40); Blood Urea Nitrogen 21 mg/dL (6-20); Calcium 9.9 mg/dL (8.5-10.5); Carbon Dioxide 27 mmol/L (22-29); Chloride 97 mmol/L (98-107); Globulin 3.1 g/dL (1.3-4.6); Glomerular Filtration Rate 78.5 mL/min (90-130); Glucose 162 mg/dL (65-115); Osmolality Calculated 287 mOsm/kg (285-295); Potassium 4.7 mmol/L (3.5-5.1); Sodium 135 mmol/L (136-145); Total Bilirubin 0.5 mg/dL (0.15-1.2); Total Protein 7.7 g/dL (6.6-8.7)
[2023-04-23 18:56] VITALS: BP 140/85; PULSE 90; O2SAT 99
== END 2023-04-23 18:58 | disposition home or self-care (01) ==
PROVIDERS: Emergency Provider Emergency Medicine; PCP Nurse Practitioner Family
DX: R20.2 Paresthesia of skin (principal); Z79.84 Long term (current) use of oral hypoglycemic drugs; Z79.4 Long term (current) use of insulin; E11.9 Type 2 diabetes mellitus without complications; I10 Essential (primary) hypertension; E78.5 Hyperlipidemia, unspecified
CPT/HCPCS: 70450; 80053; 85025; 99284

== ENCOUNTER 2023-04-27 07:14 | Outpatient (CLI) | payer OTHER, SELFPAY ==
--- NOTE | 2023-04-27 07:15 | MR_ITS ---
WS: [id number] MRI HEAD WITHOUT AND WITH GADOLINIUM ENHANCEMENT WITH ATTENTION TO THE PITUITARY. TECHNIQUE: Sagittal T1, T2 axial, T2 axial FLAIR, axial susceptibility weighted imaging, axial diffus ion weighted images, and coronal T2 images were obtained. Pre and post-T1 axial and post T1 coronal i mages. ADC and FSPGR images. High-resolution pituitary images. CLINICAL INFORMATION: D35.2 - Benign neoplasm of pituitary gland COMPARISON: CT 04/23/2023 FINDINGS: No evidence of restricted diffusion to suggest acute ischemia. Ventricular system and basilar cistern s are patent. Normal posterior fossa. Normal vascular flow voids at the skull base. No extra-axial fl uid collections. No evidence of mass or mass effect. Paranasal sinuses and mastoid air cells are well aerated. No suspicious intracranial signal normalities. No hemosiderin on the susceptibility weighte d images. Normal optic chiasm and pituitary infundibulum. Normal pituitary enhancement. Normal dynamic pituitar y images. No evidence of microadenoma. No evidence of sellar or suprasellar mass. Normal cavernous si nuses and Meckel's cave. Normal dural venous sinuses. IMPRESSION: 1. No evidence of sellar or suprasellar mass. 2. Normal pituitary enhancement. No evidence of microadenoma. 3. No suspicious intracranial signal normalities. 4. No other suspicious findings.
[2023-04-27] MEDS: gadobenate dimeglumine 20 mL vial IV (08:15)
== END 2023-04-27 07:15 | disposition home or self-care (01) ==
PROVIDERS: PCP Nurse Practitioner Family; Visit Provider Internal Medicine
DX: D35.2 Benign neoplasm of pituitary gland (principal)
CPT/HCPCS: 70553; A9577

== ENCOUNTER → 2023-05-01 14:13 | Outpatient (BNVA) | payer OTHER, SELFPAY | PROVIDERS: PCP Nurse Practitioner Family; Referring Provider Nurse Practitioner Family; Visit Provider Internal Medicine | DX: Z51.81 Encounter for therapeutic drug level monitoring (principal); Z79.890 Hormone replacement therapy; E23.7 Disorder of pituitary gland, unspecified; R79.89 Other specified abnormal findings of blood chemistry; E11.9 Type 2 diabetes mellitus without complications; E78.2 Mixed hyperlipidemia | CPT/HCPCS: G0103 ==

== ENCOUNTER 2024-02-23 12:11 | Emergency (ER) | payer OTHER, SELFPAY ==
[2024-02-23 12:12] VITALS: BP 163/82; PULSE 84; RESP 14; TEMP 36.7; O2SAT 90
--- NOTE | 2024-02-23 12:31 | ED_ITS ---
HPI - Back Pain/Injury 2 General: Chief Complaint: Back Pain/Injury Stated Complaint: Right side back kidney Time Seen by Provider: 02/23/24 12:31 History of Present Illness: 53-year-old male with a history of hyper tension, diabetes and hyperlipidemia who presents to the emergency room from work with right flank pain radiating into his groin. This started a couple of hours ago. He says it is very severe. Hurts with movement. No nausea or vomiting. He is concerned he has a kidney stone. No fevers. No chest pain. No dysuria. Review of Systems 2 Narrative: Constitutional symptoms: Negative except as documented in HPI. Skin symptoms: Negative except as documented in HPI. Eye symptoms: Negative except as documented in HPI. ENMT symptoms: Negative except as documented in HPI. Respiratory symptoms: Negative except as documented in HPI. Cardiovascular symptoms: Negative except as documented in HPI. Gastrointestinal symptoms: Negative except as documented in HPI. Genitourinary symptoms: Negative except as documented in HPI. Musculoskeletal symptoms: Negative except as documented in HPI. Neurologic symptoms: Negative except as documented in HPI. Psychiatric symptoms: Negative except as documented in HPI. Endocrine symptoms: Negative except as documented in HPI. PFSH ED 2 PFSH: Medical History Diabetes mellitus Essential (primary) hypertension Hyperlipidemia Neuropathy Tachycardia Surgical History S/P tonsillectomy History of mandibular surgery Family History Other Cancer Diabetes Heart disease Social History Smoking and tobacco/nicotine status: never used tobacco/nicotine Alcohol intake: never Physical Exam 2 Narrative: EXAM NARRATIVE: General: Alert, no acute distress. Skin: Warm, dry. Head: Normocephalic, atraumatic. Neck: Supple, trachea midline. Eye: Extraocular movements are intact. Ears, nose, mouth and throat: mucosa moist. Cardiovascular: Regular, Normal peripheral perfusion. Respiratory: Lungs are clear to auscultation, respirations are non-labored, breath sounds are equal, Symmetrical chest wall expansion. Gastrointestinal: Soft, right flank pain, Non distended Musculoskeletal: Normal ROM, no deformity. Neurological: Alert and oriented, No focal neurological deficit observed. Psychiatric: Cooperative, appropriate mood & affect. Course 2 Vital Signs: Vital signs: Vital Signs Temperature 98.0 F 02/23/24 12:35 Pulse Rate 74 02/23/24 13:59 Respiratory Rate 16 02/23/24 14:09 Blood Pressure 149/79 02/23/24 13:59 Pulse Oximetry 98 02/23/24 14:09 Oxygen Delivery Me thod Room Air 02/23/24 13:59 MDM - Back Pain/Injury Medical Decision Making Medical decision making: Differential diagnosis including but not limited to and based on the above HPI, review of systems and physical exam: Ureterolithiasis. Urinary tract infection. Appendicitis. Cholecystis. Musculoskeletal / back pain. Pyelonephritis Orders placed to evaluate differential diagnosis based on the above differential, HPI and physical exam Lab Review: Laboratory results were reviewed and interpreted by myself the emergency room physician. Lab work is unremarkable. Does have a slight elevation in his BUN at 27.By looking back this seems to be fairly common for him. We are giving some fluids. Urinalysis was clear. CT scan was ordered CT of the abdomen pelvis without contrast: No acute process. No stones. No hydronephrosis. This was reviewed and interpreted by myself the emergency room physician. I also reviewed the radiology report. I reviewed the patient's medical record. Reexamination: Patient remained stable. He still having some pain. Explained I think this is musculoskeletal. Assessment and plan: Flank pain -Normal saline bolus, IV Toradol and IV Zofran given. Then IV Dilaudid. - Discharged home - Discussed findings and plan with patient. Answered any questions. - All laboratory values were reviewed and interpreted personally by myself, the ER physician - All imaging was reviewed and interpreted personally by myself, the ER physician. - Evaluation and treatment of this problem were appropriate in the emergency setting Labs 02/23/24 13:07 02/23/24 13:07 Radiology Impressions Abdomen/Pelvis CT 02/23/24 12:31 IMPRESSION: No acute abnormality. Laboratory Results WBC 8.52 10^3/uL (3.29-11.43) 02/23/24 13:07 RBC 4.91 10^6/uL (3.85-5.65) 02/23/24 13:07 Hgb 14.20 g/dL (11.27-16.99) 02/23/24 13:07 Hct 42.7 % (37-53) 02/23/24 13:07 MCV 87.0 fl (82-101) 02/23/24 13:07 MCH 28.9 pg (27-33) 02/23/24 13:07 MCHC 33.3 g/dL (30-55) 02/23/24 13:07 RDW 11.7 % (12.1-15.1) L 02/23/24 13:07 Plt Count 286 10^3/cmm (157-399) 02/23/24 13:07 MPV 9.6 fL (7.4-10.4) 02/23/24 13:07 Neut % (Auto) 63.0 % 02/23/24 13:07 Lymph % (Auto) 28.4 % 02/23/24 13:07 [place] % (Auto) 6.0 % 02/23/24 13:07 Eos % (Auto) 1.8 % 02/23/24 13:07 Baso % (Auto) 0.4 % 02/23/24 13:07 Neut # (Auto) 5.38 10^3/uL (1.8-7.7) 02/23/24 13:07 Lymph # (Auto) 2.4 10^3/uL (0.8-4.8) 02/23/24 13:07 [place] # (Auto) 0.5 10^3/uL (0.2-0.9) 02/23/24 13:07 Eos # (Auto) 0.2 10^3/uL (0.0-0.8) 02/23/24 13:07 Baso # (Auto) 0.0 10^3/uL (0.0-0.1) 02/23/24 13:07 Nucleated RBC % (auto) 0 % 02/23/24 13:07 Nucleated RBCs # 0.0 /100WBC 02/23/24 13:07 Sodium 139 mmol/L (136-145) 02/23/24 13:07 Potassium 4.0 mmol/L (3.5-5.1) 02/23/24 13:07 Chloride 103 mmol/L (98-107) 02/23/24 13:07 Carbon Dioxide 25 mmol/L (22-29) 02/23/24 13:07 Anion Gap 15.0 (5-19) 02/23/24 13:07 BUN 27 mg/dL (6-20) H 02/23/24 13:07 Creatinine 1.2 mg/dL (0.7-1.2) 02/23/24 13:07 GFR Calculation 63.3 mL/min (90-130) L 02/23/24 13:07 Glucose 166 mg/dL (65-115) H 02/23/24 13:07 Calculated Osmolality 297 mOsm/kg (285-295) H 02/23/24 13:07 Calcium 9.5 mg/dL (8.5-10.5) 02/23/24 13:07 Total Bilirubin 0.4 mg/dL (0.15-1.2) 02/23/24 13:07 AST 14 U/L (0-40) 02/23/24 13:07 ALT 17 U/L (0-41) 02/23/24 13:07 Alkaline Phosphatase 73 U/L (40-130) 02/23/24 13:07 Total Protein 7.5 g/dL (6.6-8.7) 02/23/24 13:07 Albumin 4.5 g/dL (3.5-5.2) 02/23/24 13:07 Globulin 3.0 g/dL (1.3-4.6) 02/23/24 13:07 Urine Color Yellow (Yellow) 02/23/24 13:03 Urine Appearance Clear (CLEAR) 02/23/24 13:03 Urine pH 5 (5-7) 02/23/24 13:03 Ur Specific Reliance 1.015 (1.005-1.030) 02/23/24 13:03 Urine Protein Neg (Negative) 02/23/24 13:03 Urine Glucose (UA) 4+ (Normal) H 02/23/24 13:03 Urine Ketones Negative (Negative) 02/23/24 13:03 Urine Blood Neg (Negative) 02/23/24 13:03 Urine Nitrate Negative (Negative) 02/23/24 13:03 Urine Bilirubin Neg (Negative) 02/23/24 13:03 Urine Urobilinogen Norm mg/dL (Negative) 02/23/24 13:03 Ur Leukocyte Esterase Negative (Negative) 02/23/24 13:03 Urine RBC None /hpf (0-2) 02/23/24 13:03 Urine WBC Rare /hpf (0-5) 02/23/24 13:03 Ur Squamous Epith Cells None /hpf (0-5) 02/23/24 13:03 Amorphous Sediment Not Reportable 02/23/24 13:03 Urine Bacteria Trace /hpf (NONE) 02/23/24 13:03 All radiology interpretation(s) finalized by discharge Discharge Plan Discharge Patient Disposition: Home Clinical Impression: Flank pain Condition: Stable Prescriptions: New tramadol 50 mg tablet 50 mg PO Q8H PRN (Reason: pain) Qty: 20 0RF diclofenac sodium 50 mg tablet,delayed release (DR/EC) 50 mg PO Q12H Qty: 20 0RF No Action glimepiride 4 mg tablet 4 mg PO BID losartan 25 mg tablet 25 mg PO ONCE escitalopram oxalate 20 mg tablet 20 mg PO ONCE Lantus Solostar U-100 Insulin 100 unit/mL (3 mL) insulin pen 50 unit SUBCUT BID 30 Days Qty: 15 6RF Rx Instructions: 52 units buspirone 7.5 mg tablet 7.5 mg PO BID Qty: 180 3RF (DME) sole supports See Rx Instructions .Route .MEDSUPPLY Qty: 1 0RF Rx Instructions: As directed fluticasone propionate [Flonase Allergy Relief] 50 mcg/actuation spray,suspension 1 spray INTRANASAL BID Qty: 9.9 0RF Rx Instructions: administer into each nostril (DME) pen needle, diabetic [BD Diane 2nd Gen Pen Needle] 32 gauge x 5/32 needle See Rx Instructions .Route Rx Instructions: As directed fluconazole 150 mg tablet 150 mg PO DAILY fluoxetine 40 mg capsule 40 mg PO DAILY (DME) FreeStyle Sandra 2 Sensor Kit See Rx Instructions .Route Rx Instructions: As directed gabapentin 300 mg capsule 300 mg PO DAILY rosuvastatin 40 mg tablet 40 mg PO DAILY triamterene-hydrochlorothiazid 37.5-25 mg capsule 1 cap PO DAILY tramadol 50 mg tablet 50 mg PO Q4H PRN (Reason: pain) Qty: 60 5RF metformin 500 mg tablet extended release 24 hr See Rx Instructions .ROUTE .COMPLEX Qty: 120 6RF Dose Instruction: TAKE TWO TABLETS (1,000MG) BY MOUTH TWICE DAILY Rx Instructions: TAKE TWO TABLETS (1,000MG) BY MOUTH TWICE DAILY Toujeo Max U-300 SoloStar 300 unit/mL (3 mL) insulin pen 40 unit SUBCUT DAILY 30 Days Qty: 6 2RF testosterone cypionate [Depo-Testosterone] 200 mg/mL oil 200 mg SUBCUT Q14D Qty: 10 0RF Ambien 5 mg Tablet 5 mg PO BEDTIME PRN (Reason: Sleep) cyclobenzaprine 10 mg tablet 10 mg PO TID PRN (Reason: muscle spasm) Qty: 20 0RF meclizine 25 mg tablet,chewable 25 mg PO BID PRN (Reason: motion sickness) Qty: 60 0RF magnesium oxide 500 mg capsule 500 mg PO BID PRN (Reason: headache) Qty: 10 0RF Discharge Orders: Discharge ED (Routine); Ordered 02/23/24 Ordered By: Nikki Guy Referrals: Surinder,JORGE Bone [Primary Care Provider] - Discharge Diet: Usual diet Discharge Activity: Increase activity as tolerated Patient Instructions: Flank Pain (ED) Activity Restrictions/Additional Instructions: Thank you for choosing [facility] for your healthcare needs today. Please realize this is an emergency room and that we are providing you with a medical screening exam and this may not be complete and all inclusive of all the testing and or work up that you may need to determine your ailment or severity of your illness. You have been screened and evaluated and felt safe for discharge. Health conditions do change or evolve sometimes and as such it is important that you follow up with your Primary Doctor to be re checked, 3-5 days is a general good time frame for follow up. 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
--- NOTE | 2024-02-23 12:31 | CTR_ITS ---
PROCEDURE INFORMATION: Exam: CT Abdomen And Pelvis Without Contrast Exam date and time: 02/23/2024 12:44 PM Age: 53 years old Clinical indication: Abdominal pain; Flank; Right; Additional info: RT flank pain TECHNIQUE: Imaging protocol: Computed tomography of the abdomen and pelvis without contrast. Radiation optimization: All CT scans at this facility use at least one of these dose optimization techniques: automated exposure control; mA and/or kV adjustment per patient size (includes targeted exams where dose is matched to clinical indication); or iterative reconstruction. COMPARISON: CR XR chest 1V portable [id number] 01/27/2020 6:32 AM RADIATION DOSE METRICS: Total DLP (mGy-cm): 975.5 FINDINGS: Diaphragm: A small hiatal hernia is present. Liver: Unremarkable.No mass. Gallbladder and biliary ducts: Normal. No calcified stones. No ductal dilation. Pancreas: The pancreas is normal. Spleen: The spleen is normal. Adrenal glands: The adrenal glands are normal. Kidneys and ureters: There is no evidence of hydronephrosis. There is a nonobstructive 4 mm calculus midpole left kidney. Stomach and bowel: There is no evidence of intestinal perforation or obstruction. There is moderately excessive colonic stool content. There is no evidence of colitis/diverticulitis. Appendix: A normal appendix is identified. Intraperitoneal space: Unremarkable. No free air. No significant fluid collection. Vasculature: Unremarkable.No abdominal aortic aneurysm. Lymph nodes: Unremarkable.No enlarged lymph nodes. Urinary bladder: Unremarkable as visualized. Reproductive: Unremarkable as visualized. Mild degenerative changes. Small disc bulge at L3-L4 without critical stenosis. Bones/joints: Unremarkable. No acute fracture. Soft tissues: There is a fat-containing umbilical hernia. CT/CT abdomen pelvis con [id number] IMPRESSION: No acute abnormality.
[2024-02-23 12:35] VITALS: BP 163/82; PULSE 84; RESP 14; TEMP 36.7; O2SAT 90
[2024-02-23 13:15] LABS: Basophils % 0.4 %; Eosinophils # 0.2 10^3/uL (0.0-0.8); Eosinophils % 1.8 %; Hematocrit 42.7 % (37-53); Lymphocytes # 2.4 10^3/uL (0.8-4.8); Lymphocytes % 28.4 %; Mean Corpuscular HGB Conc 33.3 g/dL (30-55); Mean Corpuscular Hemoglobin 28.9 pg (27-33); Mean Platelet Volume 9.6 fL (7.4-10.4); Monocytes # 0.5 10^3/uL (0.2-0.9); Neutrophils # 5.38 10^3/uL (1.8-7.7); Nucleated Red Blood Cells % 0 %; Platelet Count 286 10^3/cmm (157-399); Red Blood Count 4.91 10^6/uL (3.85-5.65); Red Cell Distribution Width 11.7 % (12.1-15.1); White Blood Count 8.52 10^3/uL (3.29-11.43)
[2024-02-23] MEDS: sodium chloride 0.9% 1,000 ML 999 ML IV (13:21)
[2024-02-23] MEDS: ketorolac 30 mg/mL INJ IVP (13:22)
[2024-02-23] MEDS: ondansetron 2 mg/ML SDV 2 mL 4 MG IVP (13:22)
[2024-02-23 13:33] LABS: Alanine Aminotransferase 17 U/L (0-41); Albumin Level 4.5 g/dL (3.5-5.2); Alkaline Phosphatase 73 U/L (40-130); Aspartate Amino Transferase 14 U/L (0-40); Blood Urea Nitrogen 27 mg/dL (6-20); Calcium 9.5 mg/dL (8.5-10.5); Carbon Dioxide 25 mmol/L (22-29); Chloride 103 mmol/L (98-107); Creatinine Clr Calc Pharmacy 77.4989; Glomerular Filtration Rate 63.3 mL/min (90-130); Glucose 166 mg/dL (65-115); Osmolality Calculated 297 mOsm/kg (285-295); Sodium 139 mmol/L (136-145); Total Bilirubin 0.4 mg/dL (0.15-1.2); Total Protein 7.5 g/dL (6.6-8.7)
[2024-02-23 13:50] LABS: Protein Urine Neg (Negative); Specific Gravity, Urine 1.015 (1.005-1.030); Urine Appearance Clear (CLEAR); Urine Color Yellow (Yellow); pH Urine 5 (5-7)
[2024-02-23 13:51] LABS: Add Urine Culture? No; Bacteria Urine TRACE /hpf; Bilirubin Urine Neg (Negative); Blood Urine Neg (Negative); Glucose Urine UA 4+ (Normal); Ketones Urine Negative (Negative); Leukocyte Esterase Urine Negative (Negative); Nitrate Urine Negative (Negative); Urobilinogen Urine Norm (Negative); WBC Urine RARE /hpf (0-5)
[2024-02-23 13:59] VITALS: BP 149/79; PULSE 74; RESP 14; O2SAT 99
[2024-02-23 14:09] VITALS: RESP 16; O2SAT 98
[2024-02-23] MEDS: HYDROmorphone 1 mg/mL INJ 1 mL IVP (14:09)
[2024-02-23 14:46] VITALS: BP 141/82; PULSE 75; RESP 16; O2SAT 95
== END 2024-02-23 14:58 | disposition home or self-care (01) ==
PROVIDERS: Emergency Provider Emergency Medicine; PCP Nurse Practitioner Family
DX: R10.9 Unspecified abdominal pain (principal); Z79.84 Long term (current) use of oral hypoglycemic drugs; Z79.4 Long term (current) use of insulin; I10 Essential (primary) hypertension; E78.5 Hyperlipidemia, unspecified; E11.40 Type 2 diabetes mellitus with diabetic neuropathy, unspecified
CPT/HCPCS: 36415; 74176; 80053; 81001; 85025; 96361; 96374; 96375; 99285; J1170; J1885; J2405; J7030

== ENCOUNTER 2025-04-30 18:53 | Emergency (ER) | payer SELFPAY ==
--- OUTSIDE RECORDS SUMMARY | 2025-04-28 23:59 | XMS_ITS | Continuity of Care Document ---
Author Organization [facility] Address [address] [place] [id number]- Care Team Providers Care Psychology Tech Name Role Phone Cadena, Smitha Velasquez Primary Care Physician Encounter [facility], [facility]–1983 Financial Number [id number] Date(s): 04/28/25 - 04/28/[address] [place] [address]- [place] Discharge Disposition: Home:Self-Care Attending Physician: Vidal Marcano MD Admitting Physician: Vidal Marcano MD Encounter Type: PACS Allergies, Adverse Reactions, Alerts No Known Medication Allergies Assessment and Plan Future Scheduled Tests Radiology* Abdomen AP 04/28/25 Medications FLUoxetine 40 MG, PO, Daily Start Date: 10/09/22 Status: Ordered Repeat number: 1 gabapentin 300 MG, PO, QID Start Date: 10/09/22 Status: Ordered Repeat number: 1 ibuprofen 800 MG, PO, TID Start Date: 10/09/22 Status: Ordered Repeat number: 1 losartan 25 MG, PO, Daily Start Date: 10/09/22 Status: Ordered Repeat number: 1 metFORMIN 500 MG, PO, BID Start Date: 10/09/22 Status: Ordered Repeat number: 1 Toujeo SoloStar 300 units/mL subcutaneous solution 16 UNIT, Subcutaneous, Daily Start Date: 10/09/22 Status: Ordered Repeat number: 1 Problem List Condition Confirmation Course Effective Dates Status Health St atus Informant Anxiety Confirmed Active patient Diabetes mellitus Confirmed Active sonny ent HTN - Hypertension Confirmed Active pat ient Meniere disease Confirmed Active patien t Procedures Procedure Date Related Diagnosis Body Site Status Colonoscopy 10/11/22 Completed EGD (esophagogastroduodenosc opy) gastric outlet reduction Complet ed History of dental surgery Completed History of placement of ear tubes Completed Tonsillectomy Completed Results Radiology Reports * Exam Date Time Procedure Performing Provider Status 04/28/25 3:00 PM Abdomen Flat Plate Auth (V erified) Notes: (Abdomen Flat Plate) Reason For Exam: right flank discomfort _ Abdomen Flat Plate Findings: There is no apparent dilated bowel, air-fluid levels or free air. No bony abnormalities are seen. There is a 4 mm calcification projecting over the left kidney which may represent nephrolithiasis. IMPRESSION: Possible nephrolithiasis on the left. FINAL REPORT Interpreted By: Wolf Brand MD Signed By (Electronic Signature): Wolf Brand MD Signed Date/Time: 04/28/2025 15:51 Dictated Date: 04/28/2025 15:50 Technologist: MAEGAN LENNON Social History Social History Type Response Smoking Status Never used tobacco entered on: 10/09/22 Sex Male Sex Representation Male (finding) Patient Care team information Care Team Personnel Name: Smitha Cadena APRN Position: P4 Advanced Practitioner Member Role: Primary Care Physician Address: [address] [place] [address] Telecom: Insurance Providers Guarantor name: JAMARI Health Plan Information #: 1 Payer: [facility] Member Number: [id number] Policy Number: JAMARI Group Number: JAMARI Payer Identifier: JAMARI
--- OUTSIDE RECORDS SUMMARY | 2025-04-28 23:59 | XMS_ITS | Continuity of Care Document ---
Author Organization [facility] Address [address] [place] [address]- Care Team Providers Care Metal Off Bearer Name Role Phone Cadena, Smitha Velasquez Primary Care Physician Encounter [facility] Financial Number [id number] Date(s): 04/28/25 - 04/28/[address] [place] [address]- [place] Discharge Disposition: Home:Self-Care Attending Physician: Vidal Marcano MD Admitting Physician: Vidal Marcano MD Encounter Type: Non Patient Allergies, Adverse Reactions, Alerts No Known Medication [...] of ear tubes Completed Tonsillectomy Completed Results Laboratory List Name Date Urinalysis 9/2/25 Most recent to oldest [Reference Range]: 1 Urine Leukocyte Negative *NA* (04/28/25 2:14 PM) Urine Nitrite Negative *NA* (04/28/25 2:14 PM) Urobilinogen [0.1-1.0] 0.2 *NA* (04/28/25 2:14 PM) Urine Protein Negative mg/dL *NA* (04/28/25 2:14 PM) Urine pH [5.0-8.0] 5.0 *NA* (04/28/25 2:14 PM) Urine Blood Negative *NA* (04/28/25 2:14 PM) Specific gravity UA [1.005-1.030] 1.037 *HI* (04/28/25 2:14 PM) Urine Ketone Negative mg/dL *NA* (04/28/25 2:14 PM) Urine Bilirubin Negative *NA* (04/28/25 2:14 PM) Urine Glucose 2+ mg/dL *NA* (04/28/25 2:14 PM) Clarity UA Clear *NA* (04/28/25 2:14 PM) Color UA Yellow *NA* (04/28/25 2:14 PM) Normal UA Yes (04/28/25 2:14 PM) Social History Social History Type Response Smoking Status Never used tobacco entered on: 10/09/22 Sex Male Sex Representation Male (finding) Patient Care team information Care Team Personnel Name: Cadena STACIESmitha Eva Position: P4 Advanced Practitioner Member Role: Primary Care Physician Address: [address] [place] [address] Telecom: Insurance Providers Guarantor name: JAMARI Health Plan Information #: 1 Payer: [facility] Member Number: [id number] Policy Number: JAMARI Group Number: JAMARI Payer Identifier: JAMARI Health Plan Information #: 2 Payer: [facility] Member Number: [id number] Policy Number: JAMARI Group Number: [id number] Payer Identifier: JAMARI
[2025-04-30 19:01] VITALS: BP 101/70; PULSE 97; RESP 17; TEMP 36.7; O2SAT 98; BMI 30.4
--- OUTSIDE RECORDS SUMMARY | 2025-04-30 19:02 | XMS_ITS | Encounter Summary ---
Author Organization [facility] Address [address] [place] [place] [address] Care Team Providers Care Metalizer Field Operation Name Role Phone Unavailable Primary Care Provider Unavailabl e Encounter Details Date Type Department Care Team ([facility] st Contact Info) Description 07/05/2021 Outside Records [facility] [address] [place] [address] Interface, Provider Social History Tobacco Use Types Packs/Day Years Used Date Smoking Tobacco: Never Smokeless Tobacco: Never Alcohol Use Standard Drinks/Week Comments Never 0 (1 standard drink = 0.6 oz pur e alcohol) Sex and Gender Information Value Date Recorded Sex Assigned at Not on file Legal Sex Male 10:39 AM CDT Gender Identity Not on file Sexual Orientation Not on file COVID-19 Exposure Response Date Recorded In the last month, have you been in contact with someone who was confirmed or suspected to have Coronavirus / COVID-19? No / Unsure 06/30/2021 7:27 AM CDT documented as of this encounter Plan of Treatment Not on file documented as of this encounter Visit Diagnoses Not on filedocumented in this encounter
--- OUTSIDE RECORDS SUMMARY | 2025-04-30 19:02 | XMS_ITS | Clinical Summary ---
Author Organization [facility] Address [address] [facility] Attn: Epic Prelude ADT LYNN STAUFFER [address] Care Team Providers Care Car Sales Representative Name Role Phone Marvin Rubio MD Primary Care Provider [phone] Allergies No known active allergies Medications losartan (COZAAR) 25 mg tablet losartan 25 mg tablet TAKE 1 TABLET BY MOUTH ONCE A DAY 8 Active FLUoxetine (PROzac) 40 mg capsule fluoxetine 40 mg capsule Take 1 capsule every day by oral route. 8 Active atorvastatin (LIPITOR) 80 mg tablet atorvastatin 80 mg tablet TAKE 1 TABLET BY MOUTH AT BEDTIME 8 Active naproxen (NAPROSYN) 500 mg tablet naproxen 500 mg tablet TAKE 1 TABLET BY MOUTH TWO TIMES A DAY 8 Active Active Problems Problem Noted Date Diagnosed Date Sensorineural hearing loss (SNHL), bilateral 06/2019 Meniere's disease, right 03/20/2014 Resolved Problems Problem Noted Date Diagnosed Date Resolved Date Sudden hearing loss 03/20/2014 09/06/19 19 Family History Medical History Relation Name Comments Diabetes Father Healthy Mother Relation Name Status Comments Father Mother Alive Social History Tobacco Use Types Packs/Day Years Used Date Smoking Tobacco: Never Smokeless Tobacco: Never Alcohol Use Standard Drinks/Week Comments No 0 (1 standard drink = 0.6 oz pur e alcohol) Sex and Gender Information Value Date Recorded Sex Assigned at Not on file Legal Sex Male 11:48 AM CREDIT COMPLIANCE OFFICER Gender Identity Not on file Sexual Orientation Not on file Last Filed Vital Signs Vital Sign Reading Time Taken Comments Blood Pressure 138/91 10/15/2018 1:54 PM CREDIT COMPLIANCE OFFICER Pulse 93 10/15/2018 1:54 PM CREDIT COMPLIANCE OFFICER Temperature - - Respiratory Rate - - Oxygen Saturation - - Inhaled Oxygen Concentration - - Weight 93 kg (205 lb) 10/15/2018 1:54 PM CREDIT COMPLIANCE OFFICER Height 170.2 cm (5' 7 ) 10/15/2018 1:54 PM CREDIT COMPLIANCE OFFICER Body Mass Index 32.11 10/15/2018 1:54 PM CREDIT COMPLIANCE OFFICER Plan of Treatment Health Maintenance Due Date Last Done Comments DTAP/TDAP/TD VACCINES (1 - Tdap) 1989 HEPATITIS B VACCINES (1 of 3 - 19+ 3-dose series) 11/27 COLORECTAL SCREENING 12/25/2015 Colorectal Cancer Screening 12/25/2015 FIT-DNA Q 3 years 12/25/2015 FIT/FOBT Q 1 year 12/25/2015 Flex Sig/CT Colonography Q 5 years 12/25/2015 ZOSTER VACCINE (1 of 2) 2020 INFLUENZA VACCINE (#1) 2025 Insurance [facility] CHOICE [id number] Care Teams Car Sales Representative Relationship Specialty Start Date End Date Marvin Rubio MD [address] [place] [id number] PCP - General [place] 01/07/14
--- OUTSIDE RECORDS SUMMARY | 2025-04-30 19:02 | XMS_ITS | Encounter Summary ---
Author Organization [facility] Address [address] [place] [address] Care Team Providers Care Damage Inside Adjuster Name Role Phone Unavailable Primary Care Provider Unavailabl e Encounter Details Date Type Department Care Team ([facility] Contact Info) Description 04/19/2021 Outside Records [facility] [address] [facility] [place] [address] Interface, Provider Social History Tobacco Use Types Packs/Day Years Used Date Smoking Tobacco: Never Assessed Sex and Gender Information Value Date Recorded Sex Assigned at Not on file Legal Sex Male 10:39 AM CDT Gender Identity Not on file Sexual Orientation Not on file documented as of this encounter Plan of Treatment Not on file documented as of this encounter Visit Diagnoses Not on filedocumented in this encounter
--- OUTSIDE RECORDS SUMMARY | 2025-04-30 19:02 | XMS_ITS | Encounter Summary ---
Author Organization [facility] Address [address] [place] [address] Care Team Providers Care Blister Rust Eradicator Name Role Phone Marvin Rubio MD Primary Care Provider [phone] Reason for Referral * Outpatient Services (Routine) - Closed Specialty Diagnoses / Procedures Referred By Saskia t Referred To Contact Diagnoses Asymmetric SNHL (sensorineural hearing loss) Vertigo Procedures MRI IAC W WO CONTRAST Car Lux MD [address] [address] Phone: tel: fax: Referral ID Status Reason Start Date Expiration Date Visits Re quested Visits Authorized [id number] Closed 02/26/2014 03/29/2015 1 1 Encounter Details Date Type Department Care Team (Late st Contact Info) Description 02/26/2014 Ancillary Orders [facility] [address] [place] [id number] Car Lux MD [address] [place] [id number] Asymmetric SNHL (sensorineural hearing loss) (Primary Dx); Vertigo Social History Tobacco Use Types Packs/Day Years Used Date Smoking Tobacco: Never Smokeless Tobacco: Never Alcohol Use Standard Drinks/Week Comments Not Asked 0 (1 standard drink = 0.6 oz pur e alcohol) Sex and Gender Information Value Date Recorded Sex Assigned at Not on file Legal Sex Male 12:46 PM CDT Gender Identity Not on file Sexual Orientation Not on file Occupation Industry Job Start Date Job End Date Not on file Not on file Not on file Not on file documented as of this encounter Plan of Treatment Not on file documented as of this encounter Results * MRI IAC W WO CONTRAST (02/26/2014 4:12 PM CDT) Anatomical Region Laterality Modality Head Magnetic Resonan ce 02/26/2014 2:30 PM CDT Impressions 03/02/2014 8:28 AM CDT IMPRESSION: See report below. Exam: MRI IAC W WO CONTRAST Date/Time of Exam: Feb 26, 2014 04:12:00 PM Reason For Exam: Sensorineural hearing loss, asymmetrical. Technique: MRI of the internal auditory canals was performed prior to and following the administration of intravenous contrast. Contrast: 10 mL of Gadavist. Normal midline structures, ventricles and relationships at the foramen magnum. The brainstem, internal auditory canals and cerebellar pontine angle cisterns are unremarkable. No fluid or enhancement within the middle ear cavities or mastoid air cells. Normal arterial flow voids at the [place] of [place]. The nasal septum deviates to the left. Impression: 1. No significant abnormality. Geovany - uploaded from [employer]- Narrative Procedure Note Pawan Mercado MD - 03/02/2014 IMPRESSION IMPRESSION: See report below. Exam: MRI IAC W WO CONTRAST Date/Time of Exam: Feb 26, 2014 04:12:00 PM Reason For Exam: Sensorineural hearing loss, asymmetrical. Technique: MRI of the internal auditory canals was performed prior to and following the administration of intravenous contrast. Contrast: 10 mL of Gadavist. Normal midline structures, ventricles and relationships at the foramen magnum. The brainstem, internal auditory canals and cerebellar pontine angle cisterns are unremarkable. No fluid or enhancement within the middle ear cavities or mastoid air cells. Normal arterial flow voids at the [place] of [place]. The nasal septum deviates to the left. Impression: 1. No significant abnormality. ELE/jocelin - uploaded from [employer]- us Car Lux MD MR ORDERABLES Final Result documented in this encounter Visit Diagnoses Diagnosis Asymmetric SNHL (sensorineural hearing loss) Sensorineural hearing loss, asymmetrical Vertigo Dizziness and giddiness Asymmetric SNHL (sensorineural hearing loss)- Primary Sensorineural hearing loss, asymmetrical Vertigo Dizziness and giddiness documented in this encounter Care Teams Blister Rust Eradicator Relationship Specialty Start Date End Date Marvin Rubio MD [address] [address] PCP - General Pharmaceutical Compounding Supervisor 01/07/14 documented as of this encounter
--- OUTSIDE RECORDS SUMMARY | 2025-04-30 19:02 | XMS_ITS | Clinical Summary ---
Author Organization [facility] Address [address] [address] Care Team Providers Care Canal Boat Captain Name Role Phone Marvin Rubio MD Primary Care Provider [phone] Allergies No known active allergies Medications INSULIN DETEMIR (LEVEMIR FLEXPEN SUBCUT) Inject by subcutaneous injection. Dials pen to 42 Active atorvastatin (LIPITOR) 80 mg tablet atorvastatin 80 mg tablet TAKE 1 TABLET BY MOUTH AT BEDTIME Active losartan (COZAAR) 25 mg tablet losartan 25 mg tablet TAKE 1 TABLET BY MOUTH ONCE A DAY Active FLUoxetine (PROzac) 40 mg capsule fluoxetine 40 mg capsule Take 1 capsule every day by oral route. Active naproxen (NAPROSYN) 500 mg tablet naproxen 500 mg tablet TAKE 1 TABLET BY MOUTH TWO TIMES A DAY Active Active Problems Problem Noted Date Diagnosed [...] file Not on file Not on file Last Filed Vital Signs Vital Sign Reading Time Taken Comments Blood Pressure 138/91 10/15/2018 1:54 PM SURGICAL NURSE Pulse 93 10/15/2018 1:54 PM SURGICAL NURSE Temperature - - Respiratory Rate - - Oxygen Saturation - - Inhaled Oxygen Concentration - - Weight 93 kg (205 lb) 10/15/2018 1:54 PM SURGICAL NURSE Height 170.2 cm (5' 7 ) 10/15/2018 1:54 PM SURGICAL NURSE Body Mass Index 32.11 10/15/2018 1:54 PM SURGICAL NURSE Plan of Treatment Health Maintenance Due Date Last Done Comments DTAP/TDAP/TD VACCINES (1 - Tdap) 1989 HEPATITIS B VACCINES (1 of 3 - 19+ 3-dose series) 1989 COLORECTAL SCREENING 12/25/2015 Colorectal Cancer Screening 12/25/2015 FIT-DNA Q 3 years 12/25/2015 FIT/FOBT Q 1 year 12/25/2015 Flex Sig/CT Colonography Q 5 years 12/25/2015 ZOSTER VACCINE (1 of 2) 2020 INFLUENZA VACCINE (#1) 2025 08/01/2017, 2013 Insurance [facility] CHO[facility] PLUS Care Teams Canal Boat Captain Relationship Specialty Start Date End Date Marvin Rubio MD [address] [facility] [address] [place] [address] PCP - General Powder Coater 01/07/14
--- OUTSIDE RECORDS SUMMARY | 2025-04-30 19:02 | XMS_ITS | Encounter Summary ---
Author Organization [facility] Address [address] [place] [address] Care Team Providers Care Petroleum Refinery Worker Name Role Phone Marvin Rubio MD Primary Care Provider [phone] Encounter Details Date Type Department Care Team (Late st Contact Info) Description 02/26/2014 Ancillary Orders [employer] [place] [address] [place] [address] Car Lux MD [address] [address] Social History Tobacco Use Types Packs/Day Years [...] Diagnoses Not on filedocumented in this encounter Care Teams Petroleum Refinery Worker Relationship Specialty Start Date End Date Mravin Rubio MD [address] [place] [address] PCP - General Materials Supervisor 01/07/14 documented as of this encounter
--- OUTSIDE RECORDS SUMMARY | 2025-04-30 19:02 | XMS_ITS | Clinical Summary ---
Author Organization [facility] Address [address] [place] [address] Care Team Providers Care Social Media Designer Name Role Phone Unavailable Primary Care Provider Unavailabl e Allergies No known active allergies Medications gabapentin (NEURONTIN) 300 MG capsule Take one capsule (300 mg total) by mouth 3 (three) times a day. Active ibuprofen (ADVIL) 800 MG tablet Take one tablet (800 mg total) by mouth as needed for pain. Active metFORMIN (GLUMETZA) 500 MG (MOD) 24 hr tab Take one tablet (500 mg total) by mouth daily with evening meal. Active promethazine (PHENERGAN) 25 MG supp Insert one suppository (25 mg total) into rectum every 6 (six) hours as needed for nausea. 12 each 1 Active methylPREDNISol one (MEDROL, SHARON,) 4 mg tablet Take according to directions on the package. 21 tablet 1 Active Social History Tobacco Use Types Packs/Day Years Used Date Smoking Tobacco: Never Smokeless Tobacco: Never Alcohol Use Standard Drinks/Week Comments Never 0 (1 standard drink = 0.6 oz pur e alcohol) Health Literacy Answer Date Recorded Health Literacy 1 12/18/2022 Sex and Gender Information Value Date Recorded Sex Assigned at Not on file Legal Sex Male 10:39 AM CDT Gender Identity Not on file Sexual Orientation Not on file Last Filed Vital Signs Vital Sign Reading Time Taken Comments Blood Pressure 138/86 12/18/2022 3:07 PM CDT Pulse 101 12/18/2022 3:07 PM CDT Temperature - - Respiratory Rate - - Oxygen Saturation 99% 12/18/2022 3:07 PM CDT Inhaled Oxygen Concentration - - Weight 94.4 kg (208 lb 3.2 oz) 12/18/2022 3:07 P M CDT Height 172.7 cm (5' 8 ) 12/18/2022 3:07 PM CDT Body Mass Index 31.66 12/18/2022 3:07 PM CDT Plan of Treatment Health Maintenance Due Date Last Done Comments COLONOSCOPY 1970 CT Colonography 1970 Colorectal Cancer Screening 1970 FIT DNA 1970 FIT 1970 Hepatitis C Screening 1970 SIGMOIDOSCOPY 1970 Anxiety Screening 1978 HIV Screening 1985 Depression Screening 1988 Hepatitis B Vaccine (1 of 3 - 19+ 3-dose series) 1989 TDAP/DTaP/TD Vaccines (1 - Tdap) 1989 Lipid Panel 2010 Pneumococcal Vaccine 50+ (1 of 1 - PCV) 2020 Zoster Vaccine (1 of 2) 2020 COVID-19 Vaccine (2 - 2023-2 5 season) 2024 08/25/2021 Influenza Series (#1) 2025 06/22/2014 Meningococcal B Vaccine Aged Out No l onger eligible based on patient's age to complete this topic [place] [id number] [address]
--- NOTE | 2025-04-30 19:18 | CTR_ITS ---
PROCEDURE INFORMATION: Exam: CT Abdomen And Pelvis Without Contrast Exam date and time: 04/30/2025 7:31 PM Age: 54 years old Clinical indication: Abdominal pain; Right; C/O RT flank pain; Additional info: Right flank/abd pain TECHNIQUE: Imaging protocol: Computed tomography of the abdomen and pelvis without contrast. Radiation optimization: All CT scans at this facility use at least one of these dose optimization techniques: automated exposure control; mA and/or kV adjustment per patient size (includes targeted exams where dose is matched to clinical indication); or iterative reconstruction. COMPARISON: CT abdomen pelvis wo con [id number] 02/23/2024 12:44 PM RADIATION DOSE METRICS: Total DLP (mGy-cm): 883.4 FINDINGS: Coronary arteries: Coronary artery atherosclerotic calcifications. Liver: Normal. No mass. Gallbladder and biliary ducts: Cholelithiasis. Pancreas: Normal. No ductal dilation. Spleen: Normal. No splenomegaly. Adrenal glands: Normal. No mass. Kidneys and ureters: Perinephric edema bilaterally likely reflecting renal insufficiency, please correlate for pyelonephritis. Left kidney lower pole 5.9 mm nonobstructing caliceal stone. Stomach and bowel: Prominent fluid in the small bowel without dilation, please correlate for an enteritis. Minimal diverticulosis without diverticulitis. [id number] constipation. Appendix: No evidence of appendicitis. Intraperitoneal space: Unremarkable. No free air. No significant fluid collection. Vasculature: Unremarkable. No abdominal aortic aneurysm. Lymph nodes: Unremarkable. No enlarged lymph nodes. Urinary bladder: Unremarkable as visualized. Reproductive: Unremarkable as visualized. Bones/joints: Sternotomy wires. Soft tissues: Small umbilical hernia containing omentum. CT/CT kidney stone [id number] IMPRESSION: 1. Prominent fluid in the small bowel without dilation, please correlate for an enteritis. 2. Minimal diverticulosis without diverticulitis. 3. [id number] constipation. 4. Small umbilical hernia containing omentum. 5. Sternotomy wires. 6. Coronary artery atherosclerotic calcifications. 7. Perinephric edema bilaterally likely reflecting renal insufficiency, please correlate for pyelonephritis. 8. Left kidney lower pole 5.9 mm nonobstructing caliceal stone. 9. Cholelithiasis.
[2025-04-30 19:33] LABS: Hematocrit 39.2 % (37-53); Hemoglobin 13.00 g/dL (11.27-16.99); Mean Corpuscular HGB Conc 33.2 g/dL (30-55); Mean Corpuscular Hemoglobin 29.5 pg (27-33); Mean Corpuscular Volume 88.9 fl (82-101); Nucleated Red Blood Cells % 0 %; Platelet Count 265 10^3/cmm (157-399); Red Blood Count 4.41 10^6/uL (3.85-5.65); White Blood Count 8.18 10^3/uL (3.29-11.43)
[2025-04-30] MEDS: ondansetron 2 mg/ML SDV 2 mL 4 MG IVP (19:37)
[2025-04-30 19:52] LABS: Glucose Urine UA 3+ (Normal); Nitrate Urine Negative (Negative)
[2025-04-30 19:57] LABS: Add Urine Microscopic? YES; Specific Gravity, Urine 1.039 (1.005-1.030)
--- NOTE | 2025-04-30 19:57 | W.ED.ABDPA2 ---
HPI - Abdominal Pain General: Chief Complaint: Abdominal Pain Stated Complaint: Possible Kidney Stone Time Seen by Provider: 04/30/25 19:00 Source: patient Mode of arrival: ambulatory Limitations: no limitations History of Present Illness: Patient is a 54-year-old male who presents to the emergency department complaining of right flank pain for the past few weeks. States he has seen primary care for this issue, had x-ray performed and was prescribed tizanidine and Celebrex but has had no relief. States symptoms are intermittent but have gotten more constant today, stating that the pain was severe 10/10 when he got out of bed earlier this morning. He has no reports of nausea, vomiting, or diarrhea. No urinary symptoms such as hematuria or dysuria. He does state that the pain radiates into the right lower quadrant, as well as down to the right testicle but denies any swelling or penile discharge. 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 His vitals are stable at this time, overall is nontoxic-appearing. Denies personal history of kidney stones or kidney infection. MD elicited complaint: abdominal pain and flank pain Onset (ago): week(s) Location: R flank Severity: moderate Radiation: RLQ Associated Symptoms: Denies bloating, change in stool character, chills, constipation, diarrhea, dysuria, fever(s), hematochezia, nausea and vomiting Treatments prior to arrival: NSAIDs Related Data Home Medications ?Medication ?Instructions ?Recorded ?Confirmed escitalopram oxalate 20 mg tablet 20 mg PO ONCE 08/28/19 05/01/23 glimepiride 4 mg tablet 4 mg PO BID 08/28/19 05/01/23 losartan 25 mg tablet 25 mg PO ONCE 08/28/19 05/01/23 zolpidem 5 mg tablet (Ambien) 5 mg PO BEDTIME PRN Sleep 01/27/20 05/01/23 flash glucose sensor (FreeStyle 03/27/23 05/01/23 Sandra 2 Sensor kit) fluconazole 150 mg tablet 150 mg PO DAILY 03/27/23 05/01/23 fluoxetine 40 mg capsule 40 mg PO DAILY 03/27/23 05/01/23 gabapentin 300 mg capsule 300 mg PO DAILY 03/27/23 05/01/23 pen needle, diabetic 32 gauge x 03/27/23 05/01/23 5/32 (BD Diane 2nd Gen Pen Needle) rosuvastatin 40 mg tablet 40 mg PO DAILY 03/27/23 05/01/23 triamterene 37.5 1 cap PO DAILY 03/27/23 05/01/23 mg-hydrochlorothiazide 25 mg capsule Previous Rx's ?Medication ?Instructions ?Recorded fluticasone propionate 50 1 spray intranasal BID #9.9 mL 09/24/19 mcg/actuation nasal spray,suspension (Flonase Allergy Relief) insulin glargine 100 unit/mL (3 50 unit (0.5 mL) SUBCUT BID 1 10/15/19 mL) subcutaneous pen ([facility] #15 mL Solostar U-100 Insulin) buspirone 7.5 mg tablet 7.5 mg PO BID #180 tabs 01/21/20 cyclobenzaprine 10 mg tablet 10 mg PO TID PRN muscle spasm #20 01/27/20 tabs sole supports #1 ea 03/03/20 tramadol 50 mg tablet 50 mg PO Q4H PRN pain #60 tabs 04/12/20 metformin 500 mg tablet,extended See Rx Instructions .Route 09/16/20 release 24 hr .COMPLEX #120 tabs magnesium oxide 500 mg capsule 500 mg PO BID PRN headache #10 caps 04/16/21 meclizine 25 mg chewable tablet 25 mg PO BID PRN motion sickness 04/16/21 #60 tabs insulin glargine U-300 conc 300 40 unit (0.1333 mL) SUBCUT DAILY 05/17/23 unit/mL (3 mL) subcutaneous pen 30 days #6 mL (Toujeo Max U-300 SoloStar) testosterone cypionate 200 mg/mL 200 mg SUBCUT Q14D #10 mL 05/19/23 intramuscular oil (Depo-Testosterone) diclofenac sodium 50 mg 50 mg PO Q12H #20 tabs 02/23/24 tablet,delayed release tramadol 50 mg tablet 50 mg PO Q8H PRN pain #20 tabs 02/23/24 Allergies Allergy/AdvReac Type Severity Reaction Status Date / Time No Known Allergies Allergy Verified 05/17/23 08:39 Review of Systems General: Reports: 10 or more systems reviewed and unremarkable except in HPI and below Const: Denies: fever(s), chills, change in appetite, change in weight or diaphoresis ENMT: Denies: throat pain or hoarseness Card: Denies: chest pain, palpitations or lightheadedness Resp: Denies: dyspnea, productive cough or wheezing GI: Reports: abdominal pain; Denies: nausea, vomiting, diarrhea, constipation, bloating, change in stool character or hematochezia : Reports: flank pain and testicular pain; Denies: difficulty urinating, dysuria, urinary frequency or urinary urgency Musc: Denies: neck pain or back pain Skin/Breast: Denies: rash or new lesions Neuro: Denies: headache(s) or dizziness PFSH ED PFSH: Medical History Hyperlipidemia Neuropathy Tachycardia Essential (primary) hypertension Diabetes mellitus Surgical History S/P tonsillectomy History of mandibular surgery Family History Other Cancer Diabetes Heart disease Social History Smoking and tobacco/nicotine status: never used tobacco/nicotine Alcohol intake: never Physical Exam Const: COMMON NORMALS: no acute distress, average body habitus, patient oriented x3, no limitations, healthy appearing, alert and well nourished GENERAL APPEARANCE: cooperative and comfortable ORIENTATION/CONSCIOUSNESS: Yes awake Eye: COMMON NORMALS: Equal, round and reactive pupils present, EOMs intact bilaterally and conjunctivae normal CONJUNCTIVA: Yes conjunctivae normal PUPIL: Yes Equal, round and reactive pupils present Neck/C-Spine: COMMON NORMALS: full ROM, supple, no meningeal signs and no JVD Resp: COMMON NORMALS: normal respiratory effort, No retractions, No use of accessory muscles and clear to auscultation bilaterally AUSCULTATION: clear to auscultation bilaterally, no crackles, no rales, no rhonchi and no wheezes Cardio: COMMON NORMALS: no JVD, regular rate, regular rhythm, No gallops present (Cardio), No clicks present (Cardio), No murmurs present (Cardio), No rub (Cardio) and Peripheral pulses 2+ throughout RATE: regular rate RHYTHM: regular rhythm PERIPHERAL PULSES: Peripheral pulses 2+ throughout GI: COMMON NORMALS: Normal to inspection, nondistended, normoactive bowel sounds present, Soft to palpation, No hepatosplenomegaly present and no masses AUSCULTATION: Yes normoactive bowel sounds PALPATION: Yes Soft to palpation, No Guarding due to palpation present (GI), No Rigid due to palpation and Yes No hepatosplenomegaly present RECTAL EXAM: Yes deferred OTHER: Lower abdominal tenderness to palpation, no peritoneal signs : COMMON NORMALS: Yes no CVA tenderness BLADDER/KIDNEY EXAM: Yes no CVA tenderness Back/Pelvis: COMMON NORMALS: no CVA tenderness Extremity: COMMON NORMALS: normal to inspection and full ROM Neuro: COMMON NORMALS: patient oriented x3, moves all extremities, no focal motor deficits and no sensory deficits noted SENSORIUM/ORIENTATION: Yes alert MENINGEAL SIGNS: Yes no meningeal signs Psych: COMMON NORMALS: mental status grossly normal, cooperative and speech normal SPEECH: Yes normal speech Skin: COMMON NORMALS: no rashes or lesions noted GENERAL SKIN EXAM: no rashes or lesions noted Course Vital Signs: Vital signs: Vital Signs Temperature 98.1 F 04/30/25 19:01 Pulse Rate 83 04/30/25 23:38 Respiratory Rate 17 04/30/25 19:01 Blood Pressure 119/72 04/30/25 23:38 Pulse Oximetry 95 04/30/25 23:38 Oxygen Delivery Me thod Room Air 04/30/25 19:01 MDM - Abdominal Pain Medical Decision Making Patient presenting with right lower back pain that has been bothering him for weeks now, had seen primary care for this had x-ray and was treated with tizanidine and Celebrex for suspected musculoskeletal etiology. States pain worsened this morning, presenting to rule out any other acute abnormality. Expressed concern over a kidney stone though denied any personal history of this. Positive reproducible tenderness to palpation to the bilateral lower abdominal quadrants, nonspecific and no peritoneal signs. Negative CVA tenderness. Lab work was reassuring, slight bump in his creatinine from baseline this could be from dehydration, IV fluids were administered. CT abdomen and pelvis without contrast ordered did not show any acute kidney stone, however there was some nonspecific perinephric edema bilaterally, so renal ultrasound ordered and did not show any concerns for pyelonephritis, as well as his urinalysis being clean of any infection. I do not necessarily see any specific nephrotoxic drugs in his med list that would cause an interstitial nephritis, and clinically he is not presenting as toxic so feel that this is not likely at this time however did give him return precautions and need to follow-up with primary care for routine reevaluation. As right now I do not see any acute reason for hospitalization, and he is stable for discharge home with conservative treatment of likely musculoskeletal back pain. Patient agrees with this plan, does feel better after receiving IV medications here and ultimately discharged home. Lab Data 04/30/25 19:24 04/30/25 19:24 Labs/Radiology: Radiology Impressions Abdomen/Pelvis CT 04/30/25 19:18 IMPRESSION: 1. Prominent fluid in the small bowel without dilation, please correlate for an enteritis. 2. Minimal diverticulosis without diverticulitis. 3. [id number] constipation. 4. Small umbilical hernia containing omentum. 5. Sternotomy wires. 6. Coronary artery atherosclerotic calcifications. 7. Perinephric edema bilaterally likely reflecting renal insufficiency, please correlate for pyelonephritis. 8. Left kidney lower pole 5.9 mm nonobstructing caliceal stone. 9. Cholelithiasis. Renal Ultrasound 04/30/25 20:49 IMPRESSION: 1. Left kidney 6 mm nonobstructive caliceal stone, negative for hydronephrosis. 2. Left ureteral jet not seen, possibly due to technique, negative for calculus seen. Laboratory Results WBC 8.18 10^3/uL (3.29-11.43) 04/30/25 19:24 RBC 4.41 10^6/uL (3.85-5.65) 04/30/25 19:24 Hgb 13.00 g/dL (11.27-16.99) 04/30/25 19:24 Hct 39.2 % (37-53) 04/30/25 19:24 MCV 88.9 fl (82-101) 04/30/25 19:24 MCH 29.5 pg (27-33) 04/30/25 19:24 MCHC 33.2 g/dL (30-55) 04/30/25 19:24 RDW 12.5 % (12.1-15.1) 04/30/25 19:24 Plt Count 265 10^3/cmm (157-399) 04/30/25 19:24 MPV 9.7 fL (7.4-10.4) 04/30/25 19:24 Neut % (Auto) 62.2 % 04/30/25 19:24 Lymph % (Auto) 27.3 % 04/30/25 19:24 [place] % (Auto) 7.1 % 04/30/25 19:24 Eos % (Auto) 2.7 % 04/30/25 19:24 Baso % (Auto) 0.5 % 04/30/25 19:24 Neut # (Auto) 5.09 10^3/uL (1.8-7.7) 04/30/25 19:24 Lymph # (Auto) 2.2 10^3/uL (0.8-4.8) 04/30/25 19:24 [place] # (Auto) 0.6 10^3/uL (0.2-0.9) 04/30/25 19:24 Eos # (Auto) 0.2 10^3/uL (0.0-0.8) 04/30/25 19:24 Baso # (Auto) 0.0 10^3/uL (0.0-0.1) 04/30/25 19:24 Nucleated RBC % (auto) 0 % 04/30/25 19:24 Nucleated RBCs # 0.0 /100WBC 04/30/25 19:24 Sodium 137 mmol/L (136-145) 04/30/25 19:24 Potassium 4.1 mmol/L (3.5-5.1) 04/30/25 19:24 Chloride 101 mmol/L (98-107) 04/30/25 19:24 Carbon Dioxide 22 mmol/L (22-29) 04/30/25 19:24 Anion Gap 18.1 (5-19) 04/30/25 19:24 BUN 31 mg/dL (6-20) H 04/30/25 19:24 Creatinine 1.5 mg/dL (0.7-1.2) H 04/30/25 19:24 GFR Calculation 48.8 mL/min (90-130) L 04/30/25 19:24 Glucose 199 mg/dL (65-115) H 04/30/25 19:24 Calculated Osmolality 296 mOsm/kg (285-295) H 04/30/25 19:24 Calcium 9.3 mg/dL (8.5-10.5) 04/30/25 19:24 Total Bilirubin 0.3 mg/dL (0.15-1.2) 04/30/25 19:24 AST 15 U/L (0-40) 04/30/25 19:24 ALT 22 U/L (0-41) 04/30/25 19:24 Alkaline Phosphatase 83 U/L (40-130) 04/30/25 19:24 Total Protein 7.3 g/dL (6.6-8.7) 04/30/25 19:24 Albumin 4.4 g/dL (3.5-5.2) 04/30/25 19:24 Globulin 2.9 g/dL (1.3-4.6) 04/30/25 19:24 Lipase 42 U/L (13-60) 04/30/25 19:24 Urine Color Yellow (Yellow) 04/30/25 19:26 Urine Appearance Clear (CLEAR) 04/30/25 19:26 Urine pH 5.0 (5-7) 04/30/25 19:26 Ur Specific [place] 1.039 (1.005-1.030) H 04/30/25 19:26 Urine Protein Negative (Negative) 04/30/25 19:26 Urine Glucose (UA) 3+ (Normal) H 04/30/25 19:26 Urine Ketones Trace (Negative) 04/30/25 19:26 Urine Blood Negative (Negative) 04/30/25 19:26 Urine Nitrate Negative (Negative) 04/30/25 19:26 Urine Bilirubin Negative (Negative) 04/30/25 19:26 Urine Urobilinogen 1.0 mg/dL (Negative) 04/30/25 19:26 Ur Leukocyte Esterase Negative (Negative) 04/30/25 19:26 Urine RBC 0-2 /hpf (0-2) 04/30/25 19:26 Urine WBC 0-5 /hpf (0-5) 04/30/25 19:26 Ur Squamous Epith Cells 0-5 /hpf (0-5) 04/30/25 19:26 Amorphous Sediment Not Reportable 04/30/25 19:26 Urine Bacteria None seen /hpf (NONE) 04/30/25 19:26 Hyaline Casts 0-4 /lpf H 04/30/25 19:26 All radiology interpretation(s) finalized by discharge Discharge Plan Discharge Patient Disposition: Home Clinical Impression: Musculoskeletal back pain, Dehydration Condition: Stable Prescriptions: No Action glimepiride 4 mg tablet 4 mg PO BID losartan 25 mg tablet 25 mg PO ONCE escitalopram oxalate 20 mg tablet 20 mg PO ONCE Lantus Solostar U-100 Insulin 100 unit/mL (3 mL) insulin pen 50 unit SUBCUT BID 30 Days Qty: 15 6RF Rx Instructions: 52 units buspirone 7.5 mg tablet 7.5 mg PO BID Qty: 180 3RF (DME) sole supports See Rx Instructions .Route .MEDSUPPLY Qty: 1 0RF Rx Instructions: As directed fluticasone propionate [Flonase Allergy Relief] 50 mcg/actuation spray,suspension 1 spray INTRANASAL BID Qty: 9.9 0RF Rx Instructions: administer into each nostril (DME) pen needle, diabetic [BD Diane 2nd Gen Pen Needle] 32 gauge x 5/32 needle See Rx Instructions .Route Rx Instructions: As directed fluconazole 150 mg tablet 150 mg PO DAILY fluoxetine 40 mg capsule 40 mg PO DAILY (DME) FreeStyle Sandra 2 Sensor Kit See Rx Instructions .Route Rx Instructions: As directed gabapentin 300 mg capsule 300 mg PO DAILY rosuvastatin 40 mg tablet 40 mg PO DAILY triamterene-hydrochlorothiazid 37.5-25 mg capsule 1 cap PO DAILY tramadol 50 mg tablet 50 mg PO Q4H PRN (Reason: pain) Qty: 60 5RF metformin 500 mg tablet extended release 24 hr See Rx Instructions .ROUTE .COMPLEX Qty: 120 6RF Dose Instruction: TAKE TWO TABLETS (1,000MG) BY MOUTH TWICE DAILY Rx Instructions: TAKE TWO TABLETS (1,000MG) BY MOUTH TWICE DAILY Toujeo Max U-300 SoloStar 300 unit/mL (3 mL) insulin pen 40 unit SUBCUT DAILY 30 Days Qty: 6 2RF testosterone cypionate [Depo-Testosterone] 200 mg/mL oil 200 mg SUBCUT Q14D Qty: 10 0RF Ambien 5 mg Tablet 5 mg PO BEDTIME PRN (Reason: Sleep) cyclobenzaprine 10 mg tablet 10 mg PO TID PRN (Reason: muscle spasm) Qty: 20 0RF meclizine 25 mg tablet,chewable 25 mg PO BID PRN (Reason: motion sickness) Qty: 60 0RF magnesium oxide 500 mg capsule 500 mg PO BID PRN (Reason: headache) Qty: 10 0RF tramadol 50 mg tablet 50 mg PO Q8H PRN (Reason: pain) Qty: 20 0RF diclofenac sodium 50 mg tablet,delayed release (DR/EC) 50 mg PO Q12H Qty: 20 0RF Discharge Orders: Discharge ED (Routine); Ordered 04/30/25 Ordered By: Jayson Canales Referrals: Kenny Marcano MD [Primary Care Provider, Internal Medicine] Patient Instructions: Patient Portal & Jeevan Instructions Activity Restrictions/Additional Instructions: Musculoskeletal Back Pain Discharge Diagnosis: Acute musculoskeletal low back pain. ED Workup: Normal laboratory results except for mildly elevated creatinine (1.5 mg/dL), normal urinalysis, normal CT abdomen/pelvis (no nephrolithiasis), and normal renal ultrasound. No red flag findings. Suspected dehydration. --- Discharge Instructions: - Prognosis and Education: Acute musculoskeletal low back pain is typically benign and self-limited. Most patients experience significant improvement within weeks. There is no evidence of a serious underlying condition based on current evaluation. Recurrence is common, but chronicity is less likely in the absence of risk factors. - Activity: Encourage resumption of normal activities as tolerated. Avoid bed rest, as remaining active leads to better outcomes and faster recovery. - Functional movement training and home exercise programs may be considered if symptoms persist. - Analgesia: Nonsteroidal anti-inflammatory drugs (NSAIDs) are first-line for pain control, provided there are no contraindications (e.g., renal impairment, GI risk, allergy). - NSAID dosing: For example, naproxen 220?440 mg orally every 8?12 hours as needed, not exceeding 660 mg/day for OTC dosing. - Acetaminophen may be used if NSAIDs are contraindicated, though evidence for efficacy is less robust. - Muscle relaxants may provide short-term relief but should be used judiciously due to side effect profile. - Opioids are not recommended for routine management due to limited efficacy and risk of harm. - Non-pharmacologic Measures: - Application of a heating pad may provide symptomatic relief, though data are limited. - Physical therapy referral may be considered if pain persists beyond 2?4 weeks or if there is concern for chronicity - Renal Function and Hydration: The mildly elevated creatinine is likely related to dehydration. Advise adequate oral fluid intake and avoidance of nephrotoxic agents (e.g., NSAIDs if possible, contrast agents) until renal function is rechecked. - Follow up with primary care provider within 1?2 weeks for repeat creatinine and ongoing management. --- Return Precautions: - Return to the emergency department or contact your provider immediately for any of the following: - New or worsening weakness, numbness, or tingling in the legs - Loss of bowel or bladder control (incontinence or retention) - Severe, unrelenting pain not responsive to medications - Fever, chills, or signs of infection - Persistent vomiting, inability to tolerate oral fluids, or signs of worsening dehydration - Any other concerning or rapidly progressive symptoms --- Follow-Up: - Schedule follow-up with primary care provider within 1?2 weeks for reassessment of renal function and ongoing back pain management. - If pain persists beyond 4?6 weeks, or if there is significant functional impairment, consider referral for physical therapy or specialist evaluation. --- Summary: The patient is stable for discharge with a favorable prognosis. Conservative management, activity as tolerated, and close follow-up for renal function are recommended. Return precautions are provided to ensure prompt recognition of potential complications. Print Language: [place] Coding Level of Care Code ED Internet Marketing Manager for Dipak Colbert
[2025-04-30 20:00] LABS: Alanine Aminotransferase 22 U/L (0-41); Albumin Level 4.4 g/dL (3.5-5.2); Alkaline Phosphatase 83 U/L (40-130); Anion Gap 18.1 (5-19); Aspartate Amino Transferase 15 U/L (0-40); Blood Urea Nitrogen 31 mg/dL (6-20); Calcium 9.3 mg/dL (8.5-10.5); Carbon Dioxide 22 mmol/L (22-29); Chloride 101 mmol/L (98-107); Creatinine Clr Calc Pharmacy 61.5754; Globulin 2.9 g/dL (1.3-4.6); Glucose 199 mg/dL (65-115); Lipase 42 U/L (13-60); Osmolality Calculated 296 mOsm/kg (285-295); Potassium 4.1 mmol/L (3.5-5.1); Sodium 137 mmol/L (136-145); Total Protein 7.3 g/dL (6.6-8.7)
--- NOTE | 2025-04-30 20:49 | USR_ITS ---
PROCEDURE INFORMATION: Exam: US Retroperitoneal, Complete, Kidneys and Bladder Exam date and time: 04/30/2025 9:28 PM Age: 54 years old Clinical indication: Abdominal pain; Flank; Right lower quadrant (rlq); Elevated bun = 31, elevated creatinine = 1.5; Additional info: Pancho, perinephric edema TECHNIQUE: Imaging protocol: Real-time ultrasound of the retroperitoneum with image documentation. Complete exam focused on the bilateral kidneys and urinary bladder. COMPARISON: CT kidney stone [id number] 04/30/2025 7:31 PM FINDINGS: Right kidney: Normal. No stones. No hydronephrosis. Left kidney: Left kidney 6 mm nonobstructive caliceal stone, negative for hydronephrosis. Urinary bladder: Left ureteral jet not seen, possibly due to technique, negative for calculus seen. US/US renal BI* [id number] IMPRESSION: 1. Left kidney 6 mm nonobstructive caliceal stone, negative for hydronephrosis. 2. Left ureteral jet not seen, possibly due to technique, negative for calculus seen.
[2025-04-30 23:32] VITALS: BP 119/72; PULSE 80; O2SAT 95
[2025-04-30 23:38] VITALS: BP 119/72; PULSE 83; O2SAT 95
== END 2025-04-30 23:39 | disposition home or self-care (01) ==
PROVIDERS: Emergency Provider Physician Assistant; PCP Internal Medicine
DX: M54.89 Other dorsalgia (principal); E86.0 Dehydration; Z79.84 Long term (current) use of oral hypoglycemic drugs; E11.9 Type 2 diabetes mellitus without complications; E78.5 Hyperlipidemia, unspecified; E11.40 Type 2 diabetes mellitus with diabetic neuropathy, unspecified
CPT/HCPCS: 74176; 76770; 80053; 81001; 83690; 85025; 96374; 96375; 99285; J1885; J2405; J7040